=== PATIENT | female | born 1935 | race Caucasian/White ===

== ENCOUNTER 2016-09-26 12:47 | Inpatient (IN) | payer MEDICARE ==
--- NOTE | 2016-09-26 14:05 | ED ---
URI HPI - General Chief Complaint: Upper Respiratory Infection Stated Complaint: Cough/Dizzy Time Seen by Provider: 09/26/16 13:28 Source: patient, family, RN notes reviewed Mode of arrival: wheelchair Limitations: no limitations - History of Present Illness Initial Comments: This is a 81-year-old female who states she's had a cough for last 5 days has some dizziness and weakness decreased oral intake. She has some fevers and sweats. She states she was in [place] and return 5 days ago. She did fly by airplane. She states that she has some pain when she coughs in her left chest no nausea no vomiting no diarrhea. She was seen by yesterday placed on antibiotics but is not getting any better. She denies any rhinorrhea sore throat MD Complaint: cough - Related Data Home Medications Medication Instructions Recorded Confirmed Aspirin 325 mg PO DAILY 09/26/16 09/26/16 Azithromycin [Zithromax Z-pack] See Taper PO DIRECTED 09/26/16 09/26/16 Fenofibrate Nanocrystallized 145 mg PO DAILY 09/26/16 09/26/16 [Tricor] Hydroxyurea 500 - 1,000 mg PO DAILY 09/26/16 09/26/16 Lisinopril 40 mg PO DAILY 09/26/16 09/26/16 Ondansetron Odt [Zofran Odt] 4 mg PO Q8HR PRN 09/26/16 09/26/16 amLODIPine BESYLATE [Norvasc] 10 mg PO DAILY 09/26/16 09/26/16 glipiZIDE/METFORMIN HCL 1 tab PO DAILY 09/26/16 09/26/16 [Glipizide-Metformin 2.5-500 mg] Allergies Allergy/AdvReac Type Severity Reaction Status Date / Time meperidine [From Demerol] Allergy Nausea & Verified 09/26/16 13:58 Vomiting Review of Systems ROS Statement: Those systems with pertinent positive or pertinent negative responses have been documented in the HPI. ROS Other: All systems not noted in ROS Statement are negative. Past Medical History Past Medical History: Diabetes Mellitus, Hyperlipidemia, Hypertension History of Any Multi-Drug Resistant Organisms: None Reported Past Surgical History: Appendectomy, Back Surgery, Orthopedic Surgery, Tonsillectomy Additional Past Surgical History / Comment(s): rt hand,amanda shoulder ,lt knee, cataracts Past Psychological History: No Psychological Hx Reported Smoking Status: Never smoker Past Alcohol Use History: None Reported Past Drug Use History: None Reported General Exam - General Exam Comments Initial Comments: This is a well-developed well-nourished awake alert oriented x 3 female Limitations: no limitations General appearance: alert, in no apparent distress Head exam: Present: atraumatic, normocephalic, normal inspection Eye exam: Present: normal appearance, PERRL, EOMI. Absent: scleral icterus, conjunctival injection, periorbital swelling ENT exam: Present: mucous membranes dry Neck exam: Present: normal inspection. Absent: tenderness, meningismus, lymphadenopathy Respiratory exam: Present: rhonchi (right lower lobe rhonchi), decreased breath sounds. Absent: respiratory distress, wheezes, rales, stridor Cardiovascular Exam: Present: regular rate, normal rhythm, normal heart sounds. Absent: systolic murmur, diastolic murmur, rubs, gallop, clicks GI/Abdominal exam: Present: soft, normal bowel sounds. Absent: distended, tenderness, guarding, rebound, rigid Extremities exam: Present: normal inspection, full ROM, normal capillary refill. Absent: tenderness, pedal edema, joint swelling, calf tenderness Back exam: Present: normal inspection Neurological exam: Present: alert, oriented X3, CN II-XII intact Psychiatric exam: Present: normal affect, normal mood Skin exam: Present: warm, dry, intact, normal color. Absent: rash Course Vital Signs 09/26/16 09/26/16 09/26/16 12:52 13:40 15:14 Temperature 99.6 F Pulse Rate 87 68 Respiratory 22 20 18 Rate Blood Pressure 99/61 99/55 O2 Sat by Pulse 91 L 93 L Oximetry 09/26/16 09/26/16 09/26/16 15:39 16:17 16:30 Temperature Pulse Rate 72 71 73 Respiratory 20 Rate Blood Pressure 112/56 O2 Sat by Pulse 96 Oximetry 09/26/16 18:05 Temperature 97.4 F L Pulse Rate 70 Respiratory 20 Rate Blood Pressure 107/56 O2 Sat by Pulse 97 Oximetry Medical Decision Making - Medical Decision Making I did have multiple discussion with the patient and family regarding the findings. Patient did have some hypoxemia. She does have influenza type B. X- ray shows no evidence of pneumonia though on clinical exam she does have right lower lobe rhonchi. Patient originally wanted to be discharged after preparation was underway that she did change her mind after being offered admission and does choose be admitted. I did discuss case Dr. Smith. Patient be admitted with infectious disease consultation. The patient did get some improvement with aeration after the nebulizer treatment. - Lab Data Result diagrams: 09/26/16 14:25 09/26/16 14:25 Lab Results 09/26/16 09/26/16 09/26/16 Range/Units 14:25 14:25 14:25 WBC 2.7 L (3.8-10.6) k/uL RBC 4.12 (3.80-5.40) m/uL Hgb 15.2 (11.4-16.0) gm/dL Hct 45.0 (34.0-46.0) % MCV 109.1 H (80.0-100.0) fL MCH 36.8 H (25.0-35.0) pg MCHC 33.7 (31.0-37.0) g/dL RDW 14.9 (11.5-15.5) % Plt Count 182 (150-450) k/uL Neutrophils % 60 % Lymphocytes % 25 % Monocytes % 11 % Eosinophils % 1 % Basophils % 1 % Neutrophils # 1.6 (1.3-7.7) k/uL Lymphocytes # 0.7 L (1.0-4.8) k/uL Monocytes # 0.3 (0-1.0) k/uL Eosinophils # 0.0 (0-0.7) k/uL Basophils # 0.0 (0-0.2) k/uL Manual Slide Review Performed Poikilocytosis (manual Present Macrocytosis Marked D-Dimer (<0.60) mg/L FEU Sodium 138 (137-145) mmol/L Potassium 4.2 (3.5-5.1) mmol/L Chloride 104 (98-107) mmol/L Carbon Dioxide 25 (22-30) mmol/L Anion Gap 9 mmol/L BUN 21 H (7-17) mg/dL Creatinine 0.95 (0.52-1.04) mg/dL Est GFR (MDRD) Af Amer >60 (>60 ml/min/1.73 sqM) Est GFR (MDRD) Non-Af 56 (>60 ml/min/1.73 sqM) Glucose 88 (74-99) mg/dL Calcium 8.9 (8.4-10.2) mg/dL Magnesium 1.8 (1.6-2.3) mg/dL Total Bilirubin 0.5 (0.2-1.3) mg/dL AST 81 H (14-36) U/L ALT 51 (9-52) U/L Alkaline Phosphatase 66 (38-126) U/L Total Creatine Kinase 85 (30-135) U/L CK-MB (CK-2) 0.4 (0.0-2.4) ng/mL CK-MB (CK-2) Rel Index 0.5 Total Protein 6.5 (6.3-8.2) g/dL Albumin 3.9 (3.5-5.0) g/dL Influenza Type A RNA (Not Detectd) Influenza Type B (PCR) (Not Detectd) 09/26/16 09/26/16 Range/Units 14:25 14:25 WBC (3.8-10.6) k/uL RBC (3.80-5.40) m/uL Hgb (11.4-16.0) gm/dL Hct (34.0-46.0) % MCV (80.0-100.0) fL MCH (25.0-35.0) pg MCHC (31.0-37.0) g/dL RDW (11.5-15.5) % Plt Count (150-450) k/uL Neutrophils % % Lymphocytes % % Monocytes % % Eosinophils % % Basophils % % Neutrophils # (1.3-7.7) k/uL Lymphocytes # (1.0-4.8) k/uL Monocytes # (0-1.0) k/uL Eosinophils # (0-0.7) k/uL Basophils # (0-0.2) k/uL Manual Slide Review Poikilocytosis (manual Macrocytosis D-Dimer 0.31 (<0.60) mg/L FEU Sodium (137-145) mmol/L Potassium (3.5-5.1) mmol/L Chloride (98-107) mmol/L Carbon Dioxide (22-30) mmol/L Anion Gap mmol/L BUN (7-17) mg/dL Creatinine (0.52-1.04) mg/dL Est GFR (MDRD) Af Amer (>60 ml/min/1.73 sqM) Est GFR (MDRD) Non-Af (>60 ml/min/1.73 sqM) Glucose (74-99) mg/dL Calcium (8.4-10.2) mg/dL Magnesium (1.6-2.3) mg/dL Total Bilirubin (0.2-1.3) mg/dL AST (14-36) U/L ALT (9-52) U/L Alkaline Phosphatase (38-126) U/L Total Creatine Kinase (30-135) U/L CK-MB (CK-2) (0.0-2.4) ng/mL CK-MB (CK-2) Rel Index Total Protein (6.3-8.2) g/dL Albumin (3.5-5.0) g/dL Influenza Type A RNA Not Detected (Not Detectd) Influenza Type B (PCR) Detected H (Not Detectd) - EKG Data -: EKG Interpreted by Me EKG shows normal: sinus rhythm (EKG shows a sinus rhythm of 76. Interval 180 QRS duration 92 QT/QTC of 392/441 nonspecific inferior changes) - Radiology Data Radiology results: report reviewed (I did review the imaging and reports no acute findings.), image reviewed Disposition Clinical Impression: Influenza, Bronchospasm, Pneumonitis Disposition: ADMITTED IP TO THIS HOSP Condition: Stable Referrals: Adriel Franco MD [Primary Care Provider] - 1-2 days
--- NOTE | 2016-09-26 14:22 | XR ---
EXAMINATION TYPE: XR chest 2V DATE OF EXAM: 09/26/2016 2:18 PM COMPARISON: NONE TECHNIQUE: PA and lateral views submitted. HISTORY: Cough FINDINGS: The lungs are clear and there is no pneumothorax, pleural effusion, or focal pneumonia. Diffuse ost eopenia and arthropathy shoulders. Biapical pleural thickening. Postsurgical change right shoulder. H yperinflation suggests COPD. Degenerative change of the spine. Ectasia of the aorta with atherosclero tic changes. IMPRESSION: 1. No acute process.
[2016-09-26 14:39] LABS: Basophils % (A) 1 %; CH 36.4; CHCM 33.6; Eosinophils % (A) 1 %; HDW 2.58; HGB 15.2 gm/dL (11.4-16.0); Luc # (Auto) 0.08; Luc % (Auto) 3; Lymphocytes # (A) 0.7 k/uL (1.0-4.8); Lymphocytes % (A) 25 %; MCH 36.8 pg (25.0-35.0); MCHC 33.7 g/dL (31.0-37.0); MCV 109.1 fL (80.0-100.0); Macrocytosis Marked; Mean Platelet Volume 7.1; Monocytes # (A) 0.3 k/uL (0-1.0); Monocytes % (A) 11 %; Neutrophils # (A) 1.6 k/uL (1.3-7.7); Neutrophils % (A) 60 %; RBC 4.12 m/uL (3.80-5.40); RDW 14.9 % (11.5-15.5); WBC 2.7 k/uL (3.8-10.6); WBC (Perox) 2.74
[2016-09-26 14:54] LABS: Manual Review Performed
[2016-09-26 15:14] LABS: ALT 51 U/L (9-52); AST 81 U/L (14-36); Alkaline Phosphatase 66 U/L (38-126); Anion Gap 9 mmol/L; Blood Urea Nitrogen 21 mg/dL (7-17); Calcium 8.9 mg/dL (8.4-10.2); Carbon Dioxide 25 mmol/L (22-30); Chloride 104 mmol/L (98-107); Glucose 88 mg/dL (74-99); Magnesium 1.8 mg/dL (1.6-2.3); Non-African American GFR(MDRD) 56 (>60 ml/min/1.73 sqM); Potassium 4.2 mmol/L (3.5-5.1); Sodium 138 mmol/L (137-145); Total Bilirubin 0.5 mg/dL (0.2-1.3); Total Protein 6.5 g/dL (6.3-8.2)
[2016-09-26 15:20] LABS: Creatine Kinase MB 0.4 ng/mL (0.0-2.4)
[2016-09-26] MEDS ORDERED: IPRATROPIUM-ALBUTEROL 3 ML NEB INHALATION STA (16:00)
[2016-09-26] MEDS ORDERED: PNEUMONIA PROTOCOL UTILIZED 1 EACH MISC PO PRN (18:24)
[2016-09-26] MEDS ORDERED: ONDANSETRON ODT 4 MG TAB PO PRN (18:26)
[2016-09-26] MEDS: SODIUM CHLORIDE 0.9% 1,000 ML IV SCH (19:30)
[2016-09-26 19:49] LABS: Hemoglobin A1C 6.2 % (4.2-6.1)
[2016-09-26] MEDS ORDERED: IPRATROPIUM-ALBUTEROL 3 ML NEB INHALATION SCH (20:00)
[2016-09-26 20:05] LABS: Glucose,Whole Blood 73 mg/dL (75-99)
[2016-09-26] MEDS: INSULIN LISPRO (humaLOG) 300 UNIT/3 ML VIAL SQ SCH (20:21)
[2016-09-26] MEDS ORDERED: IPRATROPIUM-ALBUTEROL 3 ML NEB INHALATION PRN (23:33)
[2016-09-27] MEDS: SODIUM CHLORIDE 0.9% 1,000 ML IV SCH ×2 (04:30→14:09)
[2016-09-27 07:18] LABS: Glucose,Whole Blood 85 mg/dL (75-99)
[2016-09-27] MEDS ORDERED: metFORMIN 500 MG TAB PO SCH ×2 (07:30)
[2016-09-27] MEDS: INSULIN LISPRO (humaLOG) 300 UNIT/3 ML VIAL SQ SCH ×4 (07:32→21:54)
[2016-09-27] MEDS: OSELTAMIVIR 75 MG CAP PO SCH ×2 (08:00→21:54)
[2016-09-27] MEDS: ASPIRIN 325 MG TAB PO SCH (08:00)
[2016-09-27] MEDS: amLODIPine 5 MG TAB PO SCH ×3 (08:00→21:54)
[2016-09-27] MEDS: LISINOPRIL 20 MG TAB PO SCH ×3 (08:01→21:54)
[2016-09-27] MEDS: HYDROXYUREA 500 MG CAP PO SCH (08:01)
[2016-09-27] MEDS: AZITHROMYCIN 500 MG TAB PO SCH (08:02)
[2016-09-27] MEDS: FENOFIBRATE 160 MG TAB PO SCH (08:02)
--- NOTE | 2016-09-27 08:18 | XR ---
EXAMINATION TYPE: XR chest 2V DATE OF EXAM: 09/27/2016 8:14 AM COMPARISON: 09/26/2016 TECHNIQUE: PA and lateral views submitted. HISTORY: Pneumonia FINDINGS: The lungs are clear and there is no pneumothorax, pleural effusion, or focal pneumonia. Hyperinflat ion suggests COPD and there is arthropathy of the shoulder with previous surgery in the right. Biapic al pleural thickening noted. Mild thickening of the minor fissure. Hypertrophic and degenerative nails ge of the spine. IMPRESSION: 1. No acute process. Correlate for COPD.
[2016-09-27] MEDS: IPRATROPIUM-ALBUTEROL 3 ML NEB INHALATION SCH ×4 (08:51→19:56)
[2016-09-27] MEDS ORDERED: METFORMIN HCL PO SCH (09:00)
[2016-09-27] MEDS ORDERED: amLODIPine 10 MG TAB PO SCH (09:00)
[2016-09-27] MEDS ORDERED: AZITHROMYCIN 250 MG TAB PO SCH (09:00)
[2016-09-27] MEDS ORDERED: LISINOPRIL 20 MG TAB PO SCH (09:00)
[2016-09-27] MEDS ORDERED: GLIPIZIDE PO SCH (09:00)
[2016-09-27 11:51] LABS: Glucose,Whole Blood 72 mg/dL (75-99)
[2016-09-27 15:00] VITALS: BMI 21.4
--- NOTE | 2016-09-27 15:10 | P.HPIM ---
History of Present Illness H&P Date: 09/27/16 Chief Complaint: Weakness fever cough This is a pleasant 81-year-old lady patient of Dr. Franco, she has underlying history of hypertension diabetes mellitus type 2 hyperlipidemia admitted to the hospital secondary to fever and chills with cough difficulty of breathing. She was well flying to [place] 2 weeks prior to admission and flu eye pain, while in [place] for about 1 week patient had some fever and chills this started one week prior to admission, flew back to [place] this past Friday feeling ill with fever chills myalgia and cough. She was seen in the ER and was noted to have inluenza B and clinical pneumonitis with bronchospasm. She has leukopenia. dehydration She was started on tamiflu and iv antibiotics for acute respiratory decompensation Review of Systems Constitutional: Reports as per HPI, Reports fatigue, Reports fever, Reports malaise, Reports weakness, Denies anorexia, Denies chills, Denies chronic headaches, Denies chronic pain, Denies daytime sleepiness, Denies lethargy, Denies night sweats, Denies poor appetite, Denies sweats, Denies weight gain, Denies weight loss Ears, nose, mouth and throat: Reports as per HPI, Denies ant. neck pain, Denies bleeding gums, Denies dental pain, Denies dysphagia, Denies epistaxis, Denies headache, Denies hoarseness, Denies mouth pain, Denies nasal congestion, Denies nasal discharge, Denies neck fullness/pressure, Denies neck lump, Denies nose pain, Denies odynophagia, Denies post-nasal drip, Denies sinus pain, Denies sinus pressure, Denies swelling in mouth, Denies swelling in throat, Denies sore throat, Denies vertigo, Denies voice changes Cardiovascular: Reports as per HPI, Reports shortness of breath, Denies chest pain, Denies claudication, Denies decreased exercise tolerance, Denies dyspnea on exertion, Denies edema, Denies high blood pressure, Denies irregular heart beat, Denies leg edema, Denies lightheadedness, Denies orthopnea, Denies palpitations, Denies paroxysmal nocturnal dyspnea, Denies phlebitis, Denies rapid heart beat, Denies syncope Respiratory: Reports as per HPI, Reports cough, Reports dyspnea, Denies congestion, Denies cough with sputum, Denies excessive sputum, Denies hemoptysis , Denies home oxygen, Denies pain, Denies pain on inspiration, Denies pleurisy, Denies respiratory infections, Denies sleep apnea, Denies snoring, Denies wheezing Gastrointestinal: Reports as per HPI, Denies abdominal pain, Denies belching, Denies bloating, Denies BRBPR, Denies change in bowel habits, Denies coffee ground emesis, Denies constipation, Denies diarrhea, Denies dyspepsia, Denies early satiety, Denies excessive gas, Denies heartburn, Denies hematemesis, Denies hematochezia, Denies indigestion, Denies jaundice, Denies lactose intolerance, Denies loss of appetite, Denies melena, Denies nausea, Denies vomiting Genitourinary: Reports as per HPI, Denies abnormal vaginal bleeding, Denies decreased libido, Denies difficulty conceiving, Denies difficulty voiding, Denies dysmenorrhea, Denies dyspareunia, Denies dysuria, Denies flank pain, Denies genital sores, Denies hematuria, Denies hot flashes, Denies incomplete emptying, Denies kidney stones, Denies menorrhagia, Denies mixed incontinence, Denies nocturia, Denies pelvic pain, Denies post void dribbling, Denies , Denies prolapse symptoms, Denies stress incontinence, Denies urge incontinence , Denies urgency, Denies urinary frequency, Denies vaginal discharge, Denies vaginal dryness, Denies vaginal itching, Denies vaginal odor Menstruation: Reports as per HPI, Denies amenorrhea, Denies amenorrhea on BC, Denies currently menstrual, Denies cycle < 21 days, Denies cycle > 35 days, Denies cycle variable, Denies menses 1-7 days, Denies menses 8 or > days, Denies menses variable, Denies period heavy, Denies period light, Denies period normal, Denies period spotting, Denies post hysterectomy, Denies postmenopausal , Denies premenarcheal Musculoskeletal: Reports as per HPI, Denies arm numbness/tingling, Denies atrophy, Denies fractures, Denies frequent falls, Denies gait dysfunction, Denies hot joints, Denies leg numbness/tingling, Denies limitation of motion, Denies loss of height, Denies low back pain, Denies morning stiffness, Denies muscle cramps, Denies muscle weakness, Denies myalgias, Denies neck pain, Denies neck stiffness, Denies prior amputations, Denies redness of joints, Denies shooting arm pain, Denies shooting leg pain Integumentary: Reports as per HPI, Denies acne, Denies boils, Denies brittle nails, Denies change in hair/nails, Denies color changes, Denies darkening of skin, Denies depigmentation, Denies dryness, Denies foot/leg ulcers, Denies growths, Denies hirsutism, Denies lesions, Denies onychomycosis, Denies pruritus , Denies rash, Denies sores, Denies striae, Denies unusual bruising, Denies wounds Neurological: Reports as per HPI, Denies aphasia, Denies ataxia, Denies balance difficulties, Denies burning pain, Denies change in mentation, Denies change in smell/taste, Denies change in speech, Denies confusion, Denies convulsions, Denies double vision, Denies gait dysfunction, Denies head injury, Denies headaches, Denies hearing difficulties, Denies lack of coordination, Denies loss of vision, Denies memory loss, Denies migraines, Denies motor disturbance, Denies numbness, Denies paralysis, Denies paresthesias, Denies seizures, Denies sensory deficit, Denies spasticity, Denies syncope, Denies tic, Denies tingling , Denies transient paralysis, Denies tremors, Denies vertigo, Denies weakness, Denies visual changes Psychiatric: Reports as per HPI, Denies anhedonia, Denies anxiety, Denies anxiety attacks, Denies change in appetite, Denies change in libido, Denies change in sleep habits, Denies confusion, Denies depression, Denies difficulty concentrating, Denies disorientation, Denies hallucinations, Denies hopelessness , Denies hypersomnia, Denies insomnia, Denies irritability, Denies memory loss, Denies mood swings, Denies paranoia, Denies sadness/tearfulness, Denies sleep disturbances, Denies suicidal ideation Endocrine: Reports as per HPI, Denies cold intolerance, Denies deepening of the voice, Denies excessive sweating, Denies excessive thirst, Denies fatigue, Denies flushing, Denies heat intolerance, Denies high blood sugars, Denies increase in ring/shoe/hat size, Denies low blood sugars, Denies nocturia, Denies palpitations, Denies polydipsia, Denies polyphagia, Denies polyuria, Denies proptosis, Denies recent glucocorticoid use, Denies thyroid mass, Denies weight change Hematologic/Lymphatic: Reports as per HPI, Denies easy bleeding, Denies easy bruising, Denies lymphadenopathy, Denies lymphedema, Denies thrombophilia Allergic/Immunologic: Reports as per HPI, Denies allergic rhinitis, Denies anaphylaxis, Denies angioedema, Denies gluten intolerance, Denies persistent infections, Denies seasonal allergies, Denies urticaria, Denies wheezing Past Medical History Past Medical History: Diabetes Mellitus, Hyperlipidemia, Hypertension History of Any Multi-Drug Resistant Organisms: None Reported Past Surgical History: Appendectomy, Back Surgery, Orthopedic Surgery, Tonsillectomy Additional Past Surgical History / Comment(s): rt hand,amanda shoulder ,lt knee, cataracts Past Anesthesia/Blood Transfusion Reactions: No Reported Reaction Past Psychological History: No Psychological Hx Reported Smoking Status: Never smoker Past Alcohol Use History: None Reported Past Drug Use History: None Reported Medications and Allergies Home Medications Medication Instructions Recorded Confirmed Type Aspirin 325 mg PO DAILY 09/26/16 09/26/16 History Azithromycin [Zithromax Z-pack] See Taper PO DIRECTED 09/26/16 09/26/16 History Fenofibrate Nanocrystallized 145 mg PO DAILY 09/26/16 09/26/16 History [Tricor] Hydroxyurea 500 mg PO DAILY 09/26/16 09/26/16 History Lisinopril 20 mg PO BID 09/26/16 09/26/16 History Ondansetron Odt [Zofran Odt] 4 mg PO Q8HR PRN 09/26/16 09/26/16 History amLODIPine BESYLATE [Norvasc] 5 mg PO BID 09/26/16 09/26/16 History glipiZIDE/METFORMIN HCL 0.5 tab PO BID-W/MEALS 09/26/16 09/26/16 History [Glipizide-Metformin 2.5-500 mg] Allergies Allergy/AdvReac Type Severity Reaction Status Date / Time meperidine [From Demerol] Allergy Nausea & Verified 09/26/16 13:58 Vomiting Physical Exam Vitals: Vital Signs Temp Pulse Pulse Resp BP BP Pulse Ox 09/27/16 08:43 98.7 F 09/27/16 08:00 19 09/27/16 07:00 100.0 F H 81 19 109/61 92 L 09/26/16 23:00 98.6 F 70 16 122/64 95 09/26/16 19:44 97.4 F L 71 16 110/63 94 L 09/26/16 19:17 98.0 F 72 20 111/63 98 09/26/16 18:05 97.4 F L 70 20 107/56 97 09/26/16 18:00 78 23 116/68 98 09/26/16 17:00 78 20 115/68 98 09/26/16 16:30 73 09/26/16 16:17 71 09/26/16 15:39 72 20 112/56 96 09/26/16 15:14 68 18 99/55 93 L Intake and Output 09/26/16 09/27/16 09/27/16 22:59 06:59 14:59 Other: Voiding Method Toilet # Voids 1 1 - Constitutional General appearance: cooperative, no acute distress - EENT Eyes: anicteric sclerae, EOMI ENT: hearing grossly normal, NA/AT, normal oropharynx - Neck Neck: normal ROM - Respiratory Respiratory: bilateral: CTA, negative: diminished, dullness, rales, rhonchi, wheezing - Cardiovascular Rhythm: regular Heart sounds: normal: S1, S2 Abnormal Heart Sounds: no systolic murmur, no diastolic murmur, no rub, no S3 Gallop, no S4 Gallop, no click, no other - Gastrointestinal General gastrointestinal: normal bowel sounds, soft - Integumentary Integumentary: normal, normal turgor - Neurologic Neurologic: CNII-XII intact - Musculoskeletal Musculoskeletal: gait normal, generalized weakness, strength equal bilaterally - Psychiatric Psychiatric: A&O x's 3, appropriate affect, intact judgment & insight Results CBC & Chem 7: 09/26/16 14:25 09/26/16 14:25 Labs: Abnormal Lab Results - Last 24 Hours (Table) 09/26/16 09/26/16 09/26/16 Range/Units 14:25 14:25 14:25 WBC 2.7 L (3.8-10.6) k/uL MCV 109.1 H (80.0-100.0) fL MCH 36.8 H (25.0-35.0) pg Lymphocytes # 0.7 L (1.0-4.8) k/uL BUN 21 H (7-17) mg/dL POC Glucose (mg/dL) (75-99) mg/dL Hemoglobin A1c (4.2-6.1) % AST 81 H (14-36) U/L Influenza Type B (PCR) Detected H (Not Detectd) 09/26/16 09/26/16 09/27/16 Range/Units 14:25 20:02 11:49 WBC (3.8-10.6) k/uL MCV (80.0-100.0) fL MCH (25.0-35.0) pg Lymphocytes # (1.0-4.8) k/uL BUN (7-17) mg/dL POC Glucose (mg/dL) 73 L 72 L (75-99) mg/dL Hemoglobin A1c 6.2 H (4.2-6.1) % AST (14-36) U/L Influenza Type B (PCR) (Not Detectd) Laboratory Results WBC 2.7 k/uL (3.8-10.6) L 09/26/16 14:25 RBC 4.12 m/uL (3.80-5.40) 09/26/16 14:25 Hgb 15.2 gm/dL (11.4-16.0) 09/26/16 14:25 Hct 45.0 % (34.0-46.0) 09/26/16 14:25 MCV 109.1 fL (80.0-100.0) H 09/26/16 14:25 MCH 36.8 pg (25.0-35.0) H 09/26/16 14:25 MCHC 33.7 g/dL (31.0-37.0) 09/26/16 14:25 RDW 14.9 % (11.5-15.5) 09/26/16 14:25 Plt Count 182 k/uL (150-450) 09/26/16 14:25 Neutrophils % 60 % 09/26/16 14:25 Lymphocytes % 25 % 09/26/16 14:25 Monocytes % 11 % 09/26/16 14:25 Eosinophils % 1 % 09/26/16 14:25 Basophils % 1 % 09/26/16 14:25 Neutrophils # 1.6 k/uL (1.3-7.7) 09/26/16 14:25 Lymphocytes # 0.7 k/uL (1.0-4.8) L 09/26/16 14:25 Monocytes # 0.3 k/uL (0-1.0) 09/26/16 14:25 Eosinophils # 0.0 k/uL (0-0.7) 09/26/16 14:25 Basophils # 0.0 k/uL (0-0.2) 09/26/16 14:25 Manual Slide Review Performed 09/26/16 14:25 Poikilocytosis (manual Present 09/26/16 14:25 Macrocytosis Marked 09/26/16 14:25 D-Dimer 0.31 mg/L FEU (<0.60) 09/26/16 14:25 Sodium 138 mmol/L (137-145) 09/26/16 14:25 Potassium 4.2 mmol/L (3.5-5.1) 09/26/16 14:25 Chloride 104 mmol/L (98-107) 09/26/16 14:25 Carbon Dioxide 25 mmol/L (22-30) 09/26/16 14:25 Anion Gap 9 mmol/L 09/26/16 14:25 BUN 21 mg/dL (7-17) H 09/26/16 14:25 Creatinine 0.95 mg/dL (0.52-1.04) 09/26/16 14:25 Est GFR (MDRD) Af Amer >60 (>60 ml/min/1.73 sqM) 09/26/16 14:25 Est GFR (MDRD) Non-Af 56 (>60 ml/min/1.73 sqM) 09/26/16 14:25 Glucose 88 mg/dL (74-99) 09/26/16 14:25 POC Glucose (mg/dL) 72 mg/dL (75-99) L 09/27/16 11:49 POC Glu [employer] Yue Giordano 09/27/16 11:[address] Glu mg/dL 131 mg/dL 09/26/16 14:25 Hemoglobin A1c 6.2 % (4.2-6.1) H 09/26/16 14:25 Calcium 8.9 mg/dL (8.4-10.2) 09/26/16 14:25 Magnesium 1.8 mg/dL (1.6-2.3) 09/26/16 14:25 Total Bilirubin 0.5 mg/dL (0.2-1.3) 09/26/16 14:25 AST 81 U/L (14-36) H 09/26/16 14:25 ALT 51 U/L (9-52) 09/26/16 14:25 Alkaline Phosphatase 66 U/L (38-126) 09/26/16 14:25 Total Creatine Kinase 85 U/L (30-135) 09/26/16 14:25 CK-MB (CK-2) 0.4 ng/mL (0.0-2.4) 09/26/16 14:25 CK-MB (CK-2) Rel Index 0.5 09/26/16 14:25 Total Protein 6.5 g/dL (6.3-8.2) 09/26/16 14:25 Albumin 3.9 g/dL (3.5-5.0) 09/26/16 14:25 Influenza Type A RNA Not Detected (Not Detectd) 09/26/16 14:25 Influenza Type B (PCR) Detected (Not Detectd) H 09/26/16 14:25 Thrombosis Risk Factor Assmnt - DVT/VTE Prophylaxis DVT/VTE Prophylaxis: Mechanical Prophylaxis ordered, Low risk, early ambulation encouraged - Choose All That Apply Any of the Below Risk Factors Present?: No Other Risk Factors: Yes Each Risk Factor Represents 2 Points: Malignancy Other congenital or acquired thrombophilia - If yes, enter type in comment: No Thrombosis Risk Factor Assessment Total Risk Factor Score: 2 Thrombosis Risk Factor Assessment Level: Low Risk Assessment and Plan Plan: 1. Influenza B with SIRS, leukopenia, mild hypotension and dehydration, presenting to the ER with clinical deterioration, patient requires IV antibiotics Rocephin, and Zithromax and oral Tamiflu 75 mg twice a day. Sputum culture would be performed if able, consult with infectious disease, 2. Leukopenia and megalocytosis, possible myelodysplasia, patient is on Hydrea for thrombocytosis this would be monitored, last WBC count was 4.2, MCV is elevated as is in 2015, 2. Diabetes mellitus type 2 with hemoglobin A1c of 6.2, monitor for Accu-Cheks before meals and at bedtime, patient is on Glucotrol 1.25 mg twice a day which would be decreased to once a day 4. Elevated liver function tests mainly AST, possibly fatty liver related, 5. Acute dehydration secondary to diminished oral intake, patient currently is sitting IV fluids, appetite should be improved after influenza treatment continues to clinically make the patient better 6 Hyperlipidemia on TriCor 145 7. Hypertension on lisinopril 20 mg twice a day which would be given using parameters continue amlodipine 5 mg twice a day DVT prophylaxis GI prophylaxis with Pepcid and DOYLE hose and ambulation Expected length of stay 2 nights
[2016-09-27 17:46] LABS: Glucose,Whole Blood 78 mg/dL (75-99)
[2016-09-27 17:46] LABS: Glucose,Whole Blood 64 mg/dL (75-99)
--- NOTE | 2016-09-27 18:52 | CONS ---
DATE OF CONSULTATION: 09/27/2016 REASON FOR CONSULTATION: Acute influenza B and possible pneumonia. HISTORY OF PRESENT ILLNESS: The patient is an 81-year-old female presenting to the ER at [facility] with chief complaints of increasing shortness of breath feeling weak and tired and a dry hacking cough. The patient's symptoms started the patient was visiting. The patient said that she was feeling weak and tired with a dry, irritating cough which was dry in nature. Patient denies significant URI symptoms or sore throat. The patient did have some fever and chills but did not record her temperature. The patient flew back to [place] and ended up coming to the hospital for further evaluation. The patient was evaluated by the ER physician. She did have an x-ray that was negative for pneumonia; however, the patient did have influenza PCR coming back positive for influenza B with concern about possible right lower lobe pneumonia on clinical examination. She was started on Rocephin, azithromycin and Tamiflu. She was admitted to the hospital. I was asked to see the patient for further recommendation regarding antibiotic therapy. Patient did mention that she did have overall improvement as compared to yesterday. Still denies having any nausea. No vomiting. No abdominal pain. No diarrhea. No burning or frequency of urine. REVIEW OF SYSTEMS: CONSTITUTIONAL: Positive for weakness and fever. EYES: No complaint. ENT: No complaint. RESPIRATORY: As per HPI. CARDIOVASCULAR: No complaint. GENITOURINARY: No complaint. GASTROINTESTINAL: No complaint. MUSCULOSKELETAL: No complaint. INTEGUMENTARY: No complaint. PSYCHOLOGIC: No complaint. ENDOCRINE: No complaint. NEUROLOGIC: No complaint. PAST MEDICAL HISTORY: 1. Hypertension. 2. Hyperlipidemia. 3. Diabetes mellitus. PAST SURGICAL HISTORY: 1. Appendectomy. 2. Tonsillectomy. 3. Right hand surgery. 4. Bilateral shoulder surgery. 5. Left knee replacement. SOCIAL HISTORY: No history of smoking, drinking or drug use. FAMILY HISTORY: No pertinent findings were noticed. ALLERGIES: MEPERIDINE. Medications currently include: 1. DuoNeb. 2. Norvasc. 3. Aspirin. 4. Zithromax. 5. Rocephin. 6. Lofibra. 7. Glucotrol. 8. Hydrea. 9. Humalog. 10. Zestril. 11. Zofran. 12. Tamiflu. On examination, her blood pressure is 117/55 with a pulse of 69, temperature 98 with a T-max of 100. She is 94% on 2 L nasal cannula. General description is an elderly female lying in bed in no distress. No tachypnea or accessory muscle of respiration use. HEENT examination shows no pallor, no scleral icterus. Oral mucous membrane is dry. NECK: Trachea is central. No thyromegaly. LUNGS: Unlabored breathing with decreased breath sounds at the base. No wheeze. HEART: S1, S2. Regular rate and rhythm. ABDOMEN: Soft. No tenderness. EXTREMITIES: No edema of the feet. LABS: Hemoglobin 15.1, white count 2.7 with a BUN of 21, creatinine 0.95. Electrolytes have been normal. Liver enzymes are normal. Influenza B was positive on the PCR. Chest x-ray x2 has been negative for any acute infiltrate. DIAGNOSTIC IMPRESSION AND PLAN: Patient admitted to hospital with a low-grade fever and chills and dry hacking cough, positive for influenza B, more likely representing an acute influenza B. Clinical suspicion for a post influenza or concurrent bacterial pneumonia remains on the low side. No significant findings on clinical examination. Chest x-ray x2 has been negative. She did have slight leukopenia. She does not look toxic. PLAN: 1. Will recommend putting the patient on Tamiflu 75 mg twice a day for a total of 5 days. 2. Will try to obtain sputum for Gram stain and culture and sensitivity if the cough becomes productive. 3. May continue short course of antibiotic in the form of Rocephin and azithromycin; however, if the culture remains negative and the patient shows overall improvement, this can be discontinued. Thank you for this consultation. Will follow this patient along with you. MCKINLEY
[2016-09-27 20:38] LABS: Glucose,Whole Blood 81 mg/dL (75-99)
[2016-09-28] MEDS: SODIUM CHLORIDE 0.9% 1,000 ML IV SCH ×3 (00:16→21:21)
[2016-09-28 00:29] VITALS: RESP 16
[2016-09-28] MEDS: INSULIN LISPRO (humaLOG) 300 UNIT/3 ML VIAL SQ SCH ×4 (07:52→21:07)
[2016-09-28 08:04] LABS: Glucose,Whole Blood 88 mg/dL (75-99)
[2016-09-28] MEDS: IPRATROPIUM-ALBUTEROL 3 ML NEB INHALATION SCH ×4 (08:21→19:17)
[2016-09-28] MEDS: amLODIPine 5 MG TAB PO SCH ×2 (08:23→21:02)
[2016-09-28] MEDS: ASPIRIN 325 MG TAB PO SCH (08:23)
[2016-09-28] MEDS: OSELTAMIVIR 75 MG CAP PO SCH ×2 (08:24→21:02)
[2016-09-28] MEDS: HYDROXYUREA 500 MG CAP PO SCH (08:24)
[2016-09-28] MEDS: LISINOPRIL 20 MG TAB PO SCH ×2 (08:24→21:02)
[2016-09-28] MEDS: AZITHROMYCIN 500 MG TAB PO SCH (08:24)
[2016-09-28] MEDS: FENOFIBRATE 160 MG TAB PO SCH (08:24)
[2016-09-28 12:43] LABS: Glucose,Whole Blood 83 mg/dL (75-99)
[2016-09-28 17:01] LABS: Glucose,Whole Blood 101 mg/dL (75-99)
[2016-09-28] MEDS ORDERED: PROCHLORPERAZINE 5 MG TAB PO PRN (17:42)
--- NOTE | 2016-09-28 18:35 | P.PN ---
Subjective Principal diagnosis: pneumonia, influenza b Patient seen and examined this afternoon. Patient states much thin drainage and secretions. Dry, hacking cough. Unable to produce sputum. Patient is nauseated. States she has not been able to eat much. Has had a little bit of juice today. Patient states she had one bowl of corn flakes in the morning which is the most that she is held down in a few days she has been so nauseated and had a lack of appetite with her infection. Patient states she lives alone but her son is able to provide some help when needed. No complaints of pain. Has been ambulating in room. Objective - Vital Signs Vital signs: Vital Signs Temp 98.4 F 09/28/16 15:00 Pulse 72 09/28/16 16:06 Resp 16 09/28/16 15:00 BP 114/65 09/28/16 15:00 Pulse Ox 96 09/28/16 15:00 Intake & Output 09/27/16 09/28/16 09/28/16 18:59 06:59 18:59 Intake Total 600 Balance 600 Weight 56.699 kg Intake: Oral 600 Other: Voiding Method Toilet # Voids 2 2 3 # Bowel Movements 0 1 - Exam General: Patient awake alert and oriented x 3. No acute distress. HEENT: Sclerae are clear. Pupils equal, round and reactive to light bilaterally. Chest: Heart regular in rate and rhythm positive S1 and S2. No S3. No S4. No clicks, rubs or murmurs. Lungs: Clear to auscultation at the apices. Diminished at bases. Respirations even and nonlabored. Severe dry nonproductive cough. Abdomen/GI: Bowel sounds present in all 4 quadrants. Bowel sounds normoactive. No abdominal tenderness. No mass. No hepatomegaly or splenomegaly. No bruits. Musculoskeletal/ Extremities: No tenderness on muscular exam. No ecchymosis. Vascular: Radial pulses equal. 2/4. Ankles without any significant edema. Skin: No rash. Neurologic: Awake, alert and oriented times 3. No lateralizing deficits noted on gross inspection. - Labs CBC & Chem 7: 09/29/16 08:07 09/29/16 08:07 Labs: Abnormal Lab Results - Last 24 Hours (Table) 09/28/16 Range/Units 16:57 POC Glucose (mg/dL) 101 H (75-99) mg/dL Microbiology - Last 24 Hours (Table) 09/26/16 14:25 Blood Culture - Preliminary Blood No Growth after 24 hours Assessment and Plan Plan: 1. Influenza B with SIRS, leukopenia, mild hypotension and dehydration, presenting to the ER with clinical deterioration, patient requires IV antibiotics Rocephin, and Zithromax and oral Tamiflu 75 mg twice a day. Sputum culture was unable to perform secondary to dry cough. 2. Leukopenia and megalocytosis, possible myelodysplasia, patient is on Hydrea for thrombocytosis this would be monitored, last WBC count was 4.2, MCV is elevated as is in 2014. AM CBC 2. Diabetes mellitus type 2 with hemoglobin A1c of 6.2, monitor for Accu-Cheks before meals and at bedtime, patient is on Glucotrol 1.25 mg once a day 4. Elevated liver function tests mainly AST, possibly fatty liver related. Repeat in am. 5. Acute dehydration secondary to diminished oral intake, appetite still poor. Encouraged patient to eat. Blood glucose low as not eating. Metformin was held prior. Antiemetic ordered prn. Mucinex to thin secretions to see if this helps with nausea. 6 Hyperlipidemia on TriCor 145 7. Hypertension on lisinopril 20 mg twice a day which would be given using parameters continue amlodipine 5 mg twice a day 8. Blood cultures reviewed and are negative. 9. Check am BMP. DVT prophylaxis GI prophylaxis with Pepcid and DOYLE hose and ambulation
--- NOTE | 2016-09-28 18:43 | PN ---
DATE OF SERVICE: 09/28/2016 REASON FOR FOLLOWUP: Acute influenza B. INTERVAL HISTORY: The patient is afebrile. She is feeling better, breathing comfortably. Cough has decreased in intensity, Denies chest pain or abdominal pain. No nausea, vomiting or any diarrhea. On examination, blood pressure 114/65 with a pulse of 72, temperature 98.4. She is 96% on 2L. General description is an elderly female, lying in bed in no distress. RESPIRATORY SYSTEM: Unlabored breathing. Clear to auscultation anteriorly. HEART: S1 and S2. Regular rate and rhythm. ABDOMEN: Soft. No tenderness. LABS: No new labs have been obtained today. Blood cultures have been negative. DIAGNOSTIC IMPRESSION AND PLAN: Patient admitted to hospital with a dry barking cough, some shortness of breath, and diagnosed with acute influenza B. Clinically, suspicion remains low for a secondary bacterial pneumonia. Blood culture has been negative. Chest x-ray negative. The patient will finish therapy with oral Tamiflu to finish a 5-day course of therapy. Antibiotic will be discontinued. MTDD
[2016-09-28 20:43] LABS: Glucose,Whole Blood 151 mg/dL (75-99)
[2016-09-28] MEDS: guaiFENesin 600 MG TABLET.ER PO SCH (21:02)
[2016-09-29] MEDS: SODIUM CHLORIDE 0.9% 1,000 ML IV SCH (06:14)
[2016-09-29 07:09] LABS: Glucose,Whole Blood 95 mg/dL (75-99)
[2016-09-29 07:19] VITALS: BP 127/68; PULSE 72; TEMP 98.4
[2016-09-29] MEDS: INSULIN LISPRO (humaLOG) 300 UNIT/3 ML VIAL SQ SCH ×2 (07:33→13:04)
[2016-09-29] MEDS: ASPIRIN 325 MG TAB PO SCH (08:06)
[2016-09-29] MEDS: amLODIPine 5 MG TAB PO SCH (08:06)
[2016-09-29] MEDS: guaiFENesin 600 MG TABLET.ER PO SCH (08:06)
[2016-09-29] MEDS: AZITHROMYCIN 500 MG TAB PO SCH (08:06)
[2016-09-29] MEDS: HYDROXYUREA 500 MG CAP PO SCH (08:07)
[2016-09-29] MEDS: OSELTAMIVIR 75 MG CAP PO SCH (08:07)
[2016-09-29] MEDS: LISINOPRIL 20 MG TAB PO SCH (08:07)
[2016-09-29] MEDS: FENOFIBRATE 160 MG TAB PO SCH (08:07)
[2016-09-29 08:25] LABS: CH 36.2; CHCM 33.2; HCT 41.9 % (34.0-46.0); HDW 2.75; HGB 13.5 gm/dL (11.4-16.0); MCH 35.4 pg (25.0-35.0); MCHC 32.3 g/dL (31.0-37.0); MCV 109.7 fL (80.0-100.0); Macrocytosis Marked; RBC 3.82 m/uL (3.80-5.40); RDW 14.9 % (11.5-15.5); WBC 2.9 k/uL (3.8-10.6); WBC (Perox) 3.04
[2016-09-29 08:41] LABS: AST 76 U/L (14-36); Anion Gap 7 mmol/L; Blood Urea Nitrogen 7 mg/dL (7-17); Calcium 8.6 mg/dL (8.4-10.2); Carbon Dioxide 25 mmol/L (22-30); Chloride 111 mmol/L (98-107); Glucose 100 mg/dL (74-99); Non-African American GFR(MDRD) >60 (>60 ml/min/1.73 sqM); Potassium 3.7 mmol/L (3.5-5.1); Sodium 143 mmol/L (137-145)
[2016-09-29] MEDS: IPRATROPIUM-ALBUTEROL 3 ML NEB INHALATION SCH ×2 (08:49→11:54)
[2016-09-29 09:04] LABS: Add Differential Manual Differential
[2016-09-29 09:09] LABS: Manual Review Performed; Nucleated Red Blood Cells 0 /100 WBC (0-0); Total Cells Counted 100
[2016-09-29 12:29] LABS: Glucose,Whole Blood 96 mg/dL (75-99)
--- NOTE | 2016-09-29 12:58 | P.DS ---
Providers Date of admission: 09/26/16 18:24 Expected date of discharge: 09/29/16 Attending physician: Josie Smith Consults: 09/26/16 18:24 Consult Physician Routine Consulting Provider: Venu Lowery Consult Reason/Comments: Pneumonitis and influenza Do you want consulting provider notified?: Yes Primary care physician: Adriel Franco Patient indicates she sees Dr. Hess in the office. - Discharge Diagnosis(es) (1) SIRS due to infectious process with organ dysfunction with bronchitis and pneumonitis secondary to influenza b; patient with relative hypotension in normally hypertensive patient and clinical signs of dehydration. Patient's CBC changes unreliable as diagnostic criteria with underlying possible myelodysplasia and hydrea to suppres thrombocytosis Status: Acute (2) Influenzal bronchitis from Influenza B Status: Acute (3) Pneumonitis secondary to influenza b Status: Acute (4) Influenza, bronchopneumonia Status: Acute (5) Influenza B Status: Acute (6) Myelodysplasia (myelodysplastic syndrome) possible, being worked up and treated by hematology on an outpatient basis Status: Chronic (7) Hypertension, essential Status: Chronic (8) Diabetes mellitus type 2 in nonobese Status: Acute (9) Elevated AST (SGOT) Status: Acute (10) Hyperlipemia Status: Chronic Hospital Course: This 81-year-old female presented to [facility] with a chief complaint of fever and chills for one week while traveling to [place]. Patient in the days prior to admission also had developed myalgia,cough and dyspnea. Patient was seen and evaluated in the emergency department and found to be positive for influenza B. Chest x-ray did not reveal any pneumonia time of admission. There were chronic changes suggestive of COPD with hyperinflation and pleural thickening at the bilateral apices. The patient was admitted to the hospital and treated with Tamiflu for influenza B as well as coverage for possible superimposed bacterial process while cultures were obtained. Blood cultures were negative. Patient was seen by infectious disease. Plan of care continued and patient gradually improved. Infectious disease recommended that bacterial coverage could be discontinued as bacterial process not as highly suspected. Patient continued to improve. Oxygen was able to be weaned. Patient did have an extremely poor appetite and diabetic medications were held. Patient's appetite is slightly improved on the day of discharge and she indicates she will be able to drink supplements in the form of Glucerna or similar until her appetite fully returns. She does have the support of her son to help her at home but is fully ambulatory here. Patient seen and examined on the day of discharge her heart is regular in rate and rhythm positive S1 positive S2 no S3. Her mucous membranes are moist. Her lungs are clear to auscultation bilaterally but patient still does have a very harsh cough that is nonproductive at this time. Her abdomen is soft and nontender. Her extremities are without edema and warm with positive peripheral pulses. She is awake alert oriented and appropriate. Patient is felt stable for discharge with outpatient follow-up with Dr. Hess. Plan of care is reviewed with the patient and the nurse. Pertinent Studies: Chest x-ray was performed which reveals no acute pneumonia but bilateral apical pleural thickening and some flattening of the diaphragms suggestive of possible underlying COPD. Procedures: No procedures were performed. Patient Condition at Discharge: Good Plan - Discharge Summary New Discharge Prescriptions: Oseltamivir [Tamiflu] 75 mg PO Q12HR #5 cap Discharge Medication List Aspirin 325 mg PO DAILY 09/26/16 [History] Fenofibrate Nanocrystallized [Tricor] 145 mg PO DAILY 09/26/16 [History] Hydroxyurea 500 mg PO DAILY 09/26/16 [History] Lisinopril 20 mg PO BID 09/26/16 [History] amLODIPine BESYLATE [Norvasc] 5 mg PO BID 09/26/16 [History] glipiZIDE/METFORMIN HCL [Glipizide-Metformin 2.5-500 mg] 0.5 tab PO BID-W/MEALS 09/26/16 [History] Oseltamivir [Tamiflu] 75 mg PO Q12HR #5 cap 09/29/16 [Rx] guaiFENesin [Mucinex] 600 mg PO Q12HR #0 tab 09/29/16 [Rx] Follow up Appointment(s)/Referral(s): Kj Hess MD [STAFF PHYSICIAN] - 1 Week (office closed. please call to schedule an appointment) Ambulatory/Diagnostic Orders: AST [LAB.AMB] Location: Determined By Patient Patient Instructions/Handouts: Type 2 Diabetes in Adults (DC), Influenza (DC) Activity/Diet/Wound Care/Special Instructions: follow up with Dr. Ramirez as previously scheduled regarding possible myelodysplasia, thrombocytosis Glucerna or equivalent shakes until appetite fully improved. Do not take glipizide and metformin tablet until eating well. Monitor blood sugar when restarting that medicine. Discharge Disposition: HOME SELF-CARE
== END 2016-09-29 13:48 | disposition home or self-care (01) | DRG 195 ==
LOC: EC 12:47 → 4MS4W 18:24
PROVIDERS: ADMIT Family Medicine; ATTEND Family Medicine
DX: J10.08 Influenza due to other identified influenza virus with other specified pneumonia (principal); E86.0 Dehydration; E11.9 Type 2 diabetes mellitus without complications; I10 Essential (primary) hypertension; D46.9 Myelodysplastic syndrome, unspecified; E78.5 Hyperlipidemia, unspecified; J15.9 Unspecified bacterial pneumonia; Z98.42 Cataract extraction status, left eye; Z98.41 Cataract extraction status, right eye; Z96.652 Presence of left artificial knee joint; Z90.49 Acquired absence of other specified parts of digestive tract; Z79.84 Long term (current) use of oral hypoglycemic drugs; Z79.82 Long term (current) use of aspirin; Z79.899 Other long term (current) drug therapy
CPT/HCPCS: 36415; 71020; 80048; 80053; 82550; 82553; 83036; 83735; 84450; 85025; 85379; 87040; 87502; 93005; 94640; 99284

== ENCOUNTER → 2017-08-29 | Outpatient (CLI) | payer MEDICARE ==
--- NOTE | 2017-08-29 15:23 | BD ---
EXAMINATION TYPE: MG DEXA axial skeleton. DATE OF EXAM: 08/29/2017 COMPARISON: 11.23.2008 DEXA bone scan report. CLINICAL HISTORY: 82 YR OLD FEMALE....ICD-10 CODE: M81.0 OSTEOPOROSIS Height: 62.7 Weight: 119 FRAX RISK QUESTIONS: Alcohol (3 or more units per day): NO Family History (Parent hip fracture): UNKNOWN Glucocorticoids (More than 3mos): NO (Ex: prednisone, prednisolone, methylprednisolone, dexamethasone, and hydrocortisone). History of Fracture in Adulthood: NO Secondary Osteoporosis: YES 1. Type 1 Diabetes: NO....TYPE 2 2. Hyperthyroidism: YES 3. Menopause before 45: YES AT 38 4. Malnutrition: NO 5. Chronic liver disease: NO Rheumatoid Arthritis: NO Current Tobacco Use: NO RISK FACTORS HISTORY OF: Surgery to Spine TO SACRUM ONLY.....FOR NERVES Family History of Osteoporosis: NONE KNOWN Active: YES Diet low in dairy products/other sources of calcium: NO Postmenopausal woman: HYST. AT AGE 38 TOOK PREMARIN FOR SHORT WHILE....EARLY ON Poor Health: ELDERLY Hyperparathyroidism: YES, BEING TREATED FOR IT. Adrenal Insufficiency: NO MEDICATIONS: Prednisone or other steroids: CORTIZONE SHOT IN KNEE JOINT...A WEEK AGO Additional Medications: MULTIVITAMIN, BP MED, ORAL DIABETIC MEDS, STATIN FOR CHOLESTEROL Additional History: DIABETIC, HYPERTENSION, EXAM MEASUREMENTS: Bone mineral densitometry was performed using the [employer] System. Bone mineral density as measured about the Lumbar spine is: ----- L1-L4(G/cm2): 1.067 T Score Values are as follows: ----- L1: -2.3 ----- L2: -0.6 ----- L3: -0.4 ----- L4: -0.8 ----- L1-L4: -0.9 Bone mineral density has: Increased 2.4% since study of: 11.23.2008 Bone mineral density about the R hip (g/cm2): 0.736 Bone mineral density about the L hip (g/cm2): 0.710 T Score values are as follows: -----R Neck: -1.9 -----L Neck: -2.4 -----R Total: -2.2 -----L Total: -2.4 Bone mineral density has: Decreased -14.7% since study of: 11.23.2008 FRAX%S: THERE IS A 16.5% CHANCE OF A MAJOR OSTEOPOROTIC FX AND A 6.1% FOR HIP FX....PROBABILITY OF FX IN 10 YRS TIME IMPRESSION: Osteopenia (T Score between -2.5 and -1) is noted in both hips. Bone density is decreased or diminish ed from prior report at this level. There is slightly increased risk of fracture and the patient may be considered for treatment. Re-Screen 2-5 years. NOTE: T-SCORE=SD OF THE YOUNG ADULT MEAN.
== END | disposition home or self-care (01) ==
LOC: RADBDWWP 12:18
PROVIDERS: ATTEND Internal Medicine Geriatric Medicine
DX: M85.88 Other specified disorders of bone density and structure, other site (principal)
CPT/HCPCS: 77080

== ENCOUNTER → 2018-05-04 | Outpatient (CLI) | payer MEDICARE ==
--- NOTE | 2018-05-04 09:05 | US ---
EXAMINATION TYPE: US abdomen complete DATE OF EXAM: 05/04/2018 COMPARISON: 10/02/2010 CLINICAL HISTORY: R16.9 Splenomegaly. EXAM MEASUREMENTS: Liver Length: 14.5 cm Gallbladder Wall: 0.2 cm CBD: 0.6 cm Spleen: 10.2 cm Right Kidney: 11.1 x 4.0 x 3.9 cm Left Kidney: 11.3 x 4.2 x 4.0 cm Pancreas: Obscured by bowel gas, visualized portions Liver: Coarse, heterogeneous Gallbladder: wnl Evidence for sonographic Goodson's sign: No CBD: wnl for age Spleen: Granulomas visualized Right Kidney: No hydronephrosis. Loss of corticomedullary differentiation. Cystic area upper pole me asuring 1.5 x 1.1 x 1.1 cm. Probable renal sinus cysts visualized Left Kidney: No hydronephrosis. Loss of corticomedullary differentiation. Stone visualized measuring 0.7 cm Upper IVC: wnl as visualized Abd Aorta: Atherosclerotic changes visualized without sonographic evidence for AAA IMPRESSION: 1. No evidence of splenomegaly. Benign splenic granulomas appreciated. 2. Findings suggestive of medical renal disease with right upper pole simple appearing benign renal c yst and probable renal sinus cysts. 3. Atherosclerosis of the abdominal aorta. 4. Nonobstructing 7 mm left renal calculus. 5. Coarsened hepatic echotexture that may relate to underlying hepatic steatosis. Correlate with live r function tests.
== END ==
LOC: RADUSWWP 07:58
PROVIDERS: ATTEND Internal Medicine Geriatric Medicine
DX: N20.0 Calculus of kidney (principal); I70.0 Atherosclerosis of aorta
CPT/HCPCS: 76700

== ENCOUNTER → 2018-12-31 | Day surgery (SDC) | payer MEDICARE ==
[2018-12-25 09:07] VITALS: BMI 20.5
[~2018-12-31] MED LIST: DEXAMETHASONE SOD PHOS (MDV) 100 MG/10 ML VIAL IVP ONE; LACTATED RINGERS 1,000 ML IV ONE; LACTATED RINGERS 1,000 ML IV SCH; LIDOCAINE 1% 20 ML VIAL (10MG/ML) FOR IV START INTRADERMA ONE; LIDOCAINE 1% 20 ML VIAL (10MG/ML) FOR IV START INTRADERMA PRN; MIDAZOLAM (PF) 2 MG/2 ML VIAL IVP ONE; ONDANSETRON 4 MG/2 ML VIAL IVP ONE; PHENYLEPHRINE-0.9% NACL SYG 1 MG/10 ML SYRINGE ONE; PROPOFOL 10 MG/ML 20 ML VIAL IV ONE; ROPIVACAINE 5 MG/ML 30 ML VIAL ONE; SUCCINYLCHOLINE CHLORIDE 100 MG/5 ML SYR IV ONE; fentaNYL (PF) 50 MCG/ML 2 ML AMP IV PRN; fentaNYL (PF) 50 MCG/ML 2 ML AMP ONE
[2018-12-31 06:45] LABS: Glucose,Whole Blood 120 mg/dL (75-99)
[2018-12-31 06:49] VITALS: TEMP 97.5
--- NOTE | 2018-12-31 08:22 | P.ANPRN ---
Procedure Note - Anesthesia - Nerve Block Performed Right Popliteal Single Time Out Performed: Yes Date of Procedure: 12/31/18 Procedure Start Time: 07:05 Location of Patient Procedure: PreOp Indication: Acute Post-Operative Pain, Requested by Surgeon Specifically requested for management of pain by DrKelli: Alexei Cancino Sedation Type: Sedate with meaningful contact maintained Preparation: Sterile Prep Position: Left Lateral Needle Types: Pajunk Needle Gauge: Other (see comment) (22) Ultrasound used to visualize needle placement: Yes Ultrasound used to observe medication spread: Yes Injectate: 0.5% Ropivacaine (see comment for volume) (20 cc) Blood Aspirated: No Pain Paresthesia on Injection Noted: No Resistance on Injection: Normal Image Stored and Saved: Yes Events: Uneventful and Well Tolerated
--- NOTE | 2018-12-31 10:22 | P.OP ---
Date of Procedure: 12/31/18 Preoperative Diagnosis: 1. Severe right hallux valgus 2. 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 Osteopenia Postoperative Diagnosis: Same Procedure(s) Performed: 1. Correction of right hallux valgus deformity with triplanar 1st tarsometarsal arthrodesis 2. Correction of right hallux valgus deformity with modified Ochoa procedure 3. Correction of right rigid 2nd hammertoe deformity with PIP resection arthroplasty, MTP capsulotomy and flexor tenotomy 4. Application of short leg splint right leg Anesthesia: JESSICA regional Surgeon: Alexei Cancino Public Relations Counselor #1: Vladimir Houser Estimated Blood Loss (ml): 10 IV fluids (ml): 1,200 Pathology: none sent Condition: stable Disposition: PACU Indications for Procedure: The patient is an 83 year old female that presented to my office with a severe right bunion deformity and a rigid second hammertoe. She had failed a long course of nonsurgical treatment and requested surgery. I initially recommended continued nonsurgical treatment with the patient was adamant that she wanted to go forward with surgery. We discussed her age and potentially poor bone quality, but the patient stated that despite being 83 she was very active and in excellent health. Due to the fact that she had failed nonsurgical treatment and was realistic about her healing capacity I think it was reasonable to go forward with surgery. My recommendation was to correct her hypermobile hallux valgus with a modified Lapidus procedure. She also had a rigid second hammertoe. My recommendation was to correct a rigid second hammertoe with an MTP capsulotomy, extensor tendon lengthening, PIP resection arthroplasty, and flexor to extensor tendon transfer. We discussed the potential risks and complications of surgery including but not limited to risk of anesthesia, superficial infection, deep infection, delayed wound healing, superficial wound necrosis, damage to local blood vessels or nerves, nonunion of the fusion site, malunion of the fusion site, over correction, under correction, recurrence of her hallux valgus deformity, DVT, PE, other medical complications, and possibly loss of life or limb. The patient voiced understanding of these potential complications and provided her verbal and written consent to go forward with surgery. Description of Procedure: The patient's verified and prepped holding and the correct right leg was marked with my initials. I reviewed the consent form with the patient and all of her questions were answered. The patient was then brought back to the operating room by anesthesia after receiving a popliteal and saphenous nerve block. The patient was positioned on the OR table where general anesthetic and preoperative antibiotics were given. A tourniquet was applied the proximal aspect of the right leg. All bony prominences well-padded. The right leg was then prepped and draped in the standard sterile fashion. Prior to starting surgery timeout was performed identifying the correct patient, operative extremity, and procedu re. The patient's leg was then elevated, exsanguinated with an Esmarch bandage, and the tourniquet was inflated to 250 mmHg. I began by outlining a longitudinal incision starting at the proximal pole of the medial cuneiform and ending at the mid shaft of the first metatarsal just medial to the EHL tendon. Skin incision was made with a scalpel and dissection was carried down carefully through the subcu in his tissue with tenotomy scissors. The EHL tendon sheath was identified and the tendon was retracted laterally. The first tarsometatarsal joint was then exposed. Attention was then turned distally to the first webspace. A 1 cm incision was made at the level of the MTP joint. Dissection was carried down to the lateral capsule which was sharply released. The sesamoid suspensory ligaments were also released. At this point I was able to manually reduce the intermetatarsal angle with my thumb. Attention was then turned back proximally. A stab wound was made at the lateral base of the first metatarsal and the 2.5 mm fulcrum was placed. The cutting guide was positioned over the joint and a stab incision was made just distal to the cut guide over the lateral shaft of the second metatarsal. The intermetatarsal reduction clamp and positioner were then used to gently reduce the intermetatarsal angle. Fluoroscopy was used to verify reduction of the intermetatarsal angle and the sesamoids. A K wire was placed through the positioner to hold the correction. The joint Gladys was then placed laterally in the joint followed by the low angle cut guide. The cut guide was pinned into place and the joint seeker was removed. Fluoroscopic images were taken verifying that the cuts were correct at the base of the first metatarsal and medial cuneiform. There appeared to be medial gapping of the tarsometatarsal joint. The cutting guide was pinned into place and a microsagittal saw was used to remove bone from the first metatarsal base and medial cuneiform. The joint cut guide was then removed and a compression/distractor device was placed over the pins in the cuneiform and metatarsal. The joint was gently distracted and the cut surfaces of bone were removed. The joint was thoroughly irrigated and there did not appear to be any debris within the joint. A 2.0 mm drill bit was used to thoroughly perforate the subchondral bone to facilitate fusion. The compression device was then gently tightened nicely opposing the bony surfaces. I placed a K wire from the dorsolateral aspect of the metatarsal base into the medial cuneiform and a partially threaded 3.0 mm cannulated screw was placed. I then placed the dorsal and medial plates and a 90-90 position and held them with locking screws. Fluoroscopic imaging was taken showing reduction of the intermetatarsal angle and coverage of the sesamoids. The joint appeared to be nicely compressed and the hardware was in acceptable position. Attention was then turned to the second toe. A longitudinal incision was made directly over the second toe. The PIP joint capsule was sharply opened and the distal head of the proximal pharynx was removed with a saw. The extensor tendon was sharply lengthened and the MTP capsule was released. An incision was made in the base of the PIP joint and the flexor tendons were sharply released. A double-ended 625 K wire was driven antegrade out the tip of the toe, the PIP joint was reduced, and the K wire was driven into the proximal phalanx and across the MTP joint. Clinically there still was a small prominence over the dorsomedial aspect of the first MTP joints with a longitudinal incision was made over the medial aspect of the MTP joint. The capsule was opened in a Mark was used to gently debride the first metatarsal head. A small amount of the capsule was removed and the capsule was then imbricated with 0 Vicryl further correcting the hallux valgus. All wounds were then thoroughly irrigated and closed in layers. A sterile dressing followed by a bulky Royal splint was placed. The patient was awoken from her anesthetic, transferred to a renterprise, and brought to recovery top procedure well.
--- NOTE | 2018-12-31 10:53 | XR ---
EXAMINATION TYPE: XR foot limited RT DATE OF EXAM: 12/31/2018 COMPARISON: NONE HISTORY: RIGHT FOOT LAPIPLASTY TECHNIQUE: One intraoperative view submitted FINDINGS: Single view was obtained intraoperatively as part of a right foot lapiplasty. IMPRESSION: Intraoperative image
--- NOTE | 2018-12-31 11:01 | FL ---
EXAMINATION TYPE: FL guidance operating room DATE OF EXAM: 12/31/2018 HISTORY: Flouroscopy time 1 minute and 22 seconds of fluoroscopy provided. IMPRESSION: 1. Fluoroscopy time.
[2018-12-31 11:06] LABS: Glucose,Whole Blood 159 mg/dL (75-99)
[2018-12-31 11:32] VITALS: BP 109/65; PULSE 93; RESP 16
== END | disposition home or self-care (01) ==
LOC: OR 05:57
PROVIDERS: ATTEND Orthopaedic Surgery
DX: M20.11 Hallux valgus (acquired), right foot (principal); M20.41 Other hammer toe(s) (acquired), right foot; M21.611 Bunion of right foot; M85.80 Other specified disorders of bone density and structure, unspecified site; I10 Essential (primary) hypertension; E11.9 Type 2 diabetes mellitus without complications; E78.5 Hyperlipidemia, unspecified; E78.00 Pure hypercholesterolemia, unspecified; E07.9 Disorder of thyroid, unspecified; D47.3 Essential (hemorrhagic) thrombocythemia; D47.1 Chronic myeloproliferative disease; C44.91 Basal cell carcinoma of skin, unspecified; M19.90 Unspecified osteoarthritis, unspecified site; Z79.84 Long term (current) use of oral hypoglycemic drugs; Z79.82 Long term (current) use of aspirin; Z79.899 Other long term (current) drug therapy; Z88.5 Allergy status to narcotic agent; Z98.49 Cataract extraction status, unspecified eye; Z90.710 Acquired absence of both cervix and uterus; Z98.890 Other specified postprocedural states; Z90.89 Acquired absence of other organs; Z82.49 Family history of ischemic heart disease and other diseases of the circulatory system; Z78.0 Asymptomatic menopausal state
CPT/HCPCS: 28297; 28285; 64450; 73620; C1713; J0690; J2405; J3010; J1100; J2795; J2370; J0330; J2704; J2250

== ENCOUNTER → 2020-06-30 | Outpatient (CLI) | payer MEDICARE ==
--- NOTE | 2020-06-30 10:02 | US ---
EXAMINATION TYPE: US kidneys/renal and bladder DATE OF EXAM: 06/30/2020 COMPARISON: US 05/04/18 CLINICAL HISTORY: N39.0 UTI. custodial UTI EXAM MEASUREMENTS: Right Kidney: 12.1 x 5.3 x 5.2 cm Left Kidney: 11.3 x 5.6 x 4.5 cm Post Void Residual Volume: 0 mL Right Kidney: No hydronephrosis. Cyst upper/lateral pole = 1.2 x 1.2 x 1.1 cm. Decreased renal priti x. Left Kidney: No hydronephrosis or masses seen. Decreased renal cortex. 2 stones seen. Upper pole = 1. 2 cm. Lower pole = 1.3 cm . Posterior shadowing. Bladder: internal echos noted Bilateral Jets seen: Yes Normal Post Void Residual: Yes IMPRESSION: 1. Small cortical renal cyst. 2. Left renal calcification without hydronephrosis.
== END | disposition home or self-care (01) ==
LOC: RADUSWWP 09:18
PROVIDERS: ATTEND Internal Medicine Geriatric Medicine
DX: N28.1 Cyst of kidney, acquired (principal); N39.0 Urinary tract infection, site not specified
CPT/HCPCS: 76770

== ENCOUNTER → 2020-07-12 | Outpatient (CLI) | payer MEDICARE ==
--- NOTE | 2020-07-12 08:42 | CT ---
EXAMINATION TYPE: CT abdomen pelvis wo con DATE OF EXAM: 07/12/2020 HISTORY: Renal Calculus CT DLP: 536 mGycm. Automated Exposure Control for Dose Reduction was Utilized. TECHNIQUE: CT scan of the abdomen and pelvis is performed without oral or IV contrast. Comparison: Renal ultrasound June 30, 2020 FINDINGS: Within the limitations of a non-contrast study, the following observations are made. LUNG BASES: Posterior scarring in the lingula. Basilar peripheral reticular nodular opacities with ad ditional focal slightly thickened scarring medial left lung base. Findings are nonspecific. I favor c hronic parenchymal changes over possible atypical infection. LIVER/GB: Liver isodense to slightly hypodense relative to the spleen consistent with mild diffuse fa tty infiltration. PANCREAS: No significant abnormality is seen. SPLEEN: No significant abnormality is seen. ADRENALS: No significant abnormality is seen. KIDNEYS: Confirmation of cortical thinning right kidney. There are central small suspected benign thi n-walled cysts lower pole of the right kidney. No right-sided renal calculi or hydronephrosis. There is exophytic 1.0 cm thin-walled cyst posteriorly upper and midpole right kidney axial image 57. There is confirmation of 1.4 cm calculus upper pole collecting system left kidney coronal image 62 an d 1.1 cm calculus lower pole collecting system left kidney coronal image 52. Small central parapelvic cysts in left kidney. No hydronephrosis. Cortical thinning. No intraluminal calculi in the bladder. BOWEL: Diverticulosis in the sigmoid colon. No CT evidence for acute diverticulitis. No suspicious sm all or large bowel dilatation. Prominent 2.8 cm diverticulum along 1st-2nd portion of duodenum rocha l image 31. GENITAL ORGANS: Uterus surgically absent. LYMPH NODES: No greater than 1cm abdominal or pelvic lymph nodes are appreciated. OSSEOUS STRUCTURES: Osseous structures are demineralized but dextroconvex scoliosis centered at L2-L3 level. Moderate to severe disc space narrowing greatest left L2-L3 level. Moderate disc space narrow ing L4-L5 level. Facet arthropathy lower lumbar levels. OTHER: Mild/moderate calcified plaque of the aorta extends into branch vessels. IMPRESSION: Confirmation of 2 large left-sided calculi within the collecting system as suspected on r ecent ultrasound. No hydronephrosis or obstructing ureteral calculi currently.
== END | disposition home or self-care (01) ==
LOC: RADCTMAIN 07:38
PROVIDERS: ATTEND Urology
DX: N20.0 Calculus of kidney (principal); Z88.5 Allergy status to narcotic agent
CPT/HCPCS: 74176

== ENCOUNTER → 2020-07-24 | Outpatient (CLI) | payer MEDICARE ==
[2020-07-24 13:13] LABS: Basophils # (A) 0.1 k/uL (0-0.2); Basophils % (A) 1 %; Eosinophils # (A) 0.1 k/uL (0-0.7); Eosinophils % (A) 2 %; HCT 53.2 % (34.0-46.0); HGB 17.8 gm/dL (11.4-16.0); Lymphocytes # (A) 0.9 k/uL (1.0-4.8); Lymphocytes % (A) 16 %; MCH 38.9 pg (25.0-35.0); MCHC 33.5 g/dL (31.0-37.0); MCV 116.3 fL (80.0-100.0); Macrocytosis Marked; Mean Platelet Volume 7.6; Monocytes # (A) 0.4 k/uL (0-1.0); Monocytes % (A) 7 %; Neutrophils # (A) 4.3 k/uL (1.3-7.7); Platelet Count 229 k/uL (150-450); RBC 4.58 m/uL (3.80-5.40); RDW 14.1 % (11.5-15.5)
[2020-07-24 13:22] LABS: ALT 26 U/L (4-34); AST 37 U/L (14-36); African American GFR (CKD) >90 (>60 ml/min/1.73 sqM); Albumin 4.4 g/dL (3.5-5.0); Alkaline Phosphatase 75 U/L (38-126); Anion Gap 8 mmol/L; Blood Urea Nitrogen 19 mg/dL (7-17); Calcium 9.9 mg/dL (8.4-10.2); Carbon Dioxide 27 mmol/L (22-30); Chloride 103 mmol/L (98-107); Glucose 136 mg/dL (74-99); Non-African American GFR(CKD) 83 (>60 ml/min/1.73 sqM); Potassium 4.6 mmol/L (3.5-5.1); Sodium 138 mmol/L (137-145); Total Bilirubin 0.7 mg/dL (0.2-1.3); Total Protein 7.1 g/dL (6.3-8.2)
== END | disposition home or self-care (01) ==
LOC: LABPAT 11:14
PROVIDERS: ATTEND Urology
DX: Z01.818 Encounter for other preprocedural examination (principal); N20.0 Calculus of kidney; R31.0 Gross hematuria; I10 Essential (primary) hypertension
CPT/HCPCS: 36415; 80053; 85025; 93005

== ENCOUNTER 2020-07-31 09:38 | Inpatient (IN) | payer MEDICARE ==
[2020-07-27 09:50] VITALS: BMI 20.5
--- NOTE | 2020-07-30 11:43 | P.GSCN ---
History of Present Illness Consult date: 07/30/20 History of present illness: 85 yo female with infected large kidney stones, left. She comes for a pcnl left to remove the infected stones. There are two large stones in the left kidney. Shew comes for pcnl lt. Review of Systems All systems: negative - Constitutional Denies fever, Denies weight loss - EENT Eyes: denies blurred vision Ears, nose, mouth and throat: Denies dysphagia - Cardiovascular Denies chest pain, Denies shortness of breath - Respiratory Denies cough, Denies 7 - Gastrointestinal Reports as per HPI - Genitourinary Genitourinary: Denies dysuria, Denies hematuria - Integumentary Denies rash, Denies unusual bruising - Neurological Denies headaches, Denies syncope - Hematologic/Lymphatic Denies easy bleeding, Denies easy bruising Past Medical History Past Medical History: Blood Disorder, Cancer, Diabetes Mellitus, Hyperlipidemia, Hypertension, Osteoarthritis (OA) Additional Past Medical History / Comment(s): primary myleofibrosis, hx skin cancer, kidney stones, UTI-on antibiotic History of Any Multi-Drug Resistant Organisms: Other MDRO Year Discovered:: 07/14/20 MDRO Source:: urine Past Surgical History: Appendectomy, Back Surgery, Bladder Surgery, Hysterectomy, Orthopedic Surgery, Tonsillectomy Additional Past Surgical History / Comment(s): amanda cataracts, rt wrist surgery- (bone taken from rt elbow and put in rt hand), 3 arthroscopy surgeries rt shoulder, bursa removed from rt leg, left knee arthroscopy, cysts remoed from back, rt foot bunionectomy Past Anesthesia/Blood Transfusion Reactions: Previous Problems w/ Anesthesia, Motion Sickness, Postoperative Nausea & Vomiting (PONV) Additional Past Anesthesia/Blood Transfusion Reaction / Comm: had trouble focusing after one surgery Smoking Status: Never smoker - Past Family History Mother Family Medical History: No Reported History Medications and Allergies Home Medications Medication Instructions Recorded Confirmed Type Aspirin 325 mg PO DAILY 09/26/16 07/27/20 History Fenofibrate Nanocrystallized 145 mg PO DAILY 09/26/16 07/27/20 History [Tricor] Hydroxyurea 500 mg PO MOTUWETH 09/26/16 07/27/20 History amLODIPine BESYLATE [Norvasc] 5 mg PO BID 09/26/16 07/27/20 History Hydroxyurea [Hydrea] 1,000 mg PO SUFRSA 12/25/18 07/27/20 History sitaGLIPtin [Januvia] 100 mg PO DAILY 12/25/18 07/27/20 History Acetaminophen Tab [Tylenol] 650 mg PO Q6HR PRN tab 01/17/20 07/27/20 Rx Levofloxacin [Levaquin] 500 mg PO DAILY 07/27/20 07/27/20 History lisinopriL [Prinivil] 20 mg PO BID 07/27/20 07/27/20 History Allergies Allergy/AdvReac Type Severity Reaction Status Date / Time meperidine [From Demerol] AdvReac Nausea & Verified 07/27/20 09:38 Vomiting Surgical - Exam - General well developed, well nourished, no distress - Eyes PERRL - ENT no hearing loss - Neck no masses - Respiratory normal expansion, normal respiratory effort - Cardiovascular Rhythm: regular - Abdomen Abdomen: soft, non tender - Neurologic normal coordination, normal sensation - Musculoskeletal normal gait, normal posture - Psychiatric oriented to time, oriented to person, oriented to place, speech is normal, memory intact Results - Imaging CT scan - abdomen: report reviewed, image reviewed CT scan - pelvis: report reviewed, image reviewed Assessment and Plan Assessment: Impression: Lt large infected kidney stones Plan: PCNL left
[~2020-07-31 09:38] MED LIST changes: +AMPICILLIN 1,000 MG in SODIUM CHLORIDE 0.9% 50 ML IVPB PRN; -DEXAMETHASONE SOD PHOS (MDV) 100 MG/10 ML VIAL IVP ONE; +DEXAMETHASONE SOD PHOSPHATE 4 MG/ML 1 ML VIAL IV ONE; +GENTAMICIN 80 MG in SODIUM CHLORIDE 0.9% 100 ML IVPB PRN; -LACTATED RINGERS 1,000 ML IV ONE; -LIDOCAINE 1% 20 ML VIAL (10MG/ML) FOR IV START INTRADERMA ONE; -LIDOCAINE 1% 20 ML VIAL (10MG/ML) FOR IV START INTRADERMA PRN; -MIDAZOLAM (PF) 2 MG/2 ML VIAL IVP ONE; +MIDAZOLAM 2 MG/2 ML VIAL IV PRN; -ONDANSETRON 4 MG/2 ML VIAL IVP ONE; -PHENYLEPHRINE-0.9% NACL SYG 1 MG/10 ML SYRINGE ONE; -PROPOFOL 10 MG/ML 20 ML VIAL IV ONE; -ROPIVACAINE 5 MG/ML 30 ML VIAL ONE; -SUCCINYLCHOLINE CHLORIDE 100 MG/5 ML SYR IV ONE; -fentaNYL (PF) 50 MCG/ML 2 ML AMP ONE
[2020-07-31 10:11] LABS: Glucose,Whole Blood 149 mg/dL (75-99)
[2020-07-31] MEDS: ONDANSETRON 4 MG/2 ML VIAL IVP ONE ×2 (10:12→14:21)
--- NOTE | 2020-07-31 10:34 | XR ---
KUB HISTORY: Calculus of kidney Frontal KUB correlated to CT scan 07/12/2020 Calcifications are present over the upper and lower pole the left kidney, pole calcification measures 14 mm, smaller calcification measures approximately 7 mm. Calcification at the lower pole the left k idney measures possibly 13 mm. There is retained fecal debris present. Spinal curvature is noted, the re is degenerative disc change. Calcifications are present in the left and right hemipelvis which may be vascular. IMPRESSION: Nephrolithiasis.
[2020-07-31 11:06] LABS: Appearance,Urine Cloudy (Clear); Bilirubin,Urine Negative (Negative); Blood,Urine Moderate (Negative); Color,Urine Yellow; Glucose,Urine (UA) Negative (Negative); Hyaline Casts,Urine 2 /lpf (0-2); Ketones,Urine Negative (Negative); Leukocyte Esterase,Urine Large (Negative); Mucus,Urine Occasional /hpf; Nitrite,Urine Negative (Negative); PH, Urine 5.5 (5.0-8.0); Protein,Urine 1+ (Negative); RBC,Urine 35 /hpf (0-5); Squamous Epithelial Cell,Urine 2 /hpf (0-4); Urobilinogen,Urine <2.0 mg/dL (<2.0); WBC,Urine >182 /hpf (0-5)
[2020-07-31] MEDS ORDERED: ROCURONIUM 10 MG/ML (5 ML VIAL) IV ONE (12:06)
[2020-07-31] MEDS ORDERED: fentaNYL (PF) 50 MCG/ML 2 ML AMP ONE (12:06)
[2020-07-31] MEDS ORDERED: NEOSTIGMINE 1 MG/ML 10 ML VIAL ONE (12:06)
[2020-07-31] MEDS ORDERED: PROPOFOL 10 MG/ML 20 ML VIAL IV ONE (12:06)
[2020-07-31] MEDS ORDERED: MIDAZOLAM 2 MG/2 ML VIAL ONE (12:06)
[2020-07-31] MEDS ORDERED: ePHEDrine SULFATE/0.9% NACL/PF 50 MG/5 ML SYRINGE IV ONE (12:06)
[2020-07-31] MEDS ORDERED: GLYCOPYRROLATE 0.2 MG/ML 2 ML VIAL ONE (12:06)
[2020-07-31] MEDS ORDERED: IOHEXOL 350 MG/ML 50 ML in EMPTY BAG 1 BAG IRRIGATION ONE (12:45)
[2020-07-31] MEDS ORDERED: LACTATED RINGERS 1,000 ML IV ONE (12:45)
[2020-07-31] MEDS ORDERED: ACETAMINOPHEN TAB 325 MG TAB PO PRN ×2 (14:14→14:15)
[2020-07-31] MEDS: HYDROmorphone 0.5 MG/0.5 ML SYRINGE IVP PRN ×3 (14:15→14:35)
[2020-07-31] MEDS ORDERED: MAG HYDROX/AL HYDROX/SIMETH 30 ML CUP PO PRN (14:15)
[2020-07-31] MEDS ORDERED: NALOXONE 0.4 MG/ML 1 ML VIAL IV PRN (14:16)
[2020-07-31] MEDS ORDERED: HYDROmorphone PCA 10 MG/50 ML BAG IV PRN (14:16)
[2020-07-31] MEDS ORDERED: KETOROLAC 15 MG/ML 1 ML VIAL IVP ONE (14:21)
--- NOTE | 2020-07-31 14:22 | P.OP ---
Date of Procedure: 07/31/20 Preoperative Diagnosis: Infected left renal stones, large Postoperative Diagnosis: Same Procedure(s) Performed: Cystoscopy, placement of ureteral occluding balloon catheter, percutaneous nephrostomy (Dr. Bacon) percutaneous nephrostolithotomy laser lithotripsy, placement of 10-Cymraes J nephrostomy Anesthesia: JESSICA Surgeon: Davide Solis Estimated Blood Loss (ml): 200 Pathology: other (Stone) Condition: stable Disposition: PACU Indications for Procedure: Patient is 85. She has recurring urinary infections. She has stones in her left kidney greater than 2 cm in diameter. She comes for a left percutaneous nephrostolithotomy to rid her of her stones and hopefully her infection Description of Procedure: Patient is brought to the operating suite. She is given a general endotracheal anesthesia on the transport gurney. She's placed in a frog position with a sterile prep and drape. 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 The bladder wall shows chronic cystitis. The left renal orifice is intubated with a 5-Cymraes occluding balloon catheter that passed up into the kidney. It is secured to a 16-Cymraes Veloz catheter The patient is placed in prone position. Dr. Bacon of radiology performed percutaneous access to the left lower pole calyx. I then dilated the tract to 30-Cymraes. Introduced the rigid sheath and the collecting system. A large 8-9 mm lower pole stone was identified and removed. I then pass the flexible scope throughout the collecting system and identify any dilated upper pole calyx with a tiny infundibulum very large upper pole stone. With the 270 laser probe and 10 W of energy the stone was broken into tiny pieces and flushed out of the upper pole calyx of. Then of the procedure there is no remaining stone in the collecting system. I remove the fragments at the UPJ with the grasping forceps. A 10-Cymraes J nephrostomy tube was placed in the renal pelvis. It secured to the skin with 2-0 silk. The wires removed. The ureteral catheter was removed. The patient's awake and returned recovery in good condition. Blood loss is at most 200 cc. She tolerated surgery well and will be placed in the hospital postoperatively.
[2020-07-31 14:47] LABS: Glucose,Whole Blood 155 mg/dL (75-99)
--- NOTE | 2020-07-31 15:05 | FL ---
EXAMINATION TYPE: FL Perc Nephrostomy New Access DATE OF EXAM: 07/31/2020 COMPARISON: CT 07/12/2020, KUB 07/31/2020 HISTORY: Left nephrolithiasis. PROCEDURE: Maximal barrier technique was utilized, hand hygiene obtained with soap and water and alcohol-based h and rub. The skin overlying the left kidney was localized using fluoroscopy and the overlying skin p repped and draped. Skin sylvia was made with a scalpel. Access was gained under fluoroscopy, following placement of a ureteral occlusion balloon by the referring clinician and instillation of air in the renal collecting system with a 21-gauge needle to the left kidney. A suitable posterior calyx was ch osen. A 0.018 inch wire was advanced. The access site was dilated , access site was upsized, safet y wire deployed and subsequently a sheath was advanced into the renal pelvis following dilation with balloon along the tract. The patient underwent nephrolithotomy by the referring clinician. The mau ent remained in stable condition without complication. The patient was discharged to observation in the care of anesthesia. 3 minutes 12 seconds fluoroscopy time, 3 intraoperative images document the procedure IMPRESSION: STATUS POST NEPHROSTOMY PLACEMENT FOR NEPHROLITHOTOMY WITH FLUOROSCOPIC GUIDANCE. THIS PROCEDURE PER FORMED BY THE UNDERSIGNED.
[2020-07-31] MEDS ORDERED: HYDROmorphone 0.5 MG/0.5 ML SYRINGE IVP PRN (16:12)
[2020-07-31] MEDS ORDERED: KETOROLAC 15 MG/ML 1 ML VIAL IVP SCH (18:00)
[2020-07-31] MEDS: KETOROLAC 15 MG/ML 1 ML VIAL IVP SCH (20:40)
[2020-07-31] MEDS: SODIUM CHLORIDE 0.45% 1,000 ML IV SCH (21:35)
[2020-07-31] MEDS: lisinopriL 20 MG TAB PO SCH (21:47)
[2020-07-31] MEDS: amLODIPine 5 MG TAB PO SCH (21:47)
[2020-08-01] MEDS: HYDROcodone/APAP 5-325MG 1 EACH TAB PO PRN ×3 (00:07→18:12)
[2020-08-01] MEDS: KETOROLAC 15 MG/ML 1 ML VIAL IVP SCH ×4 (02:22→20:09)
[2020-08-01] MEDS: ONDANSETRON 4 MG/2 ML VIAL IVP PRN ×2 (06:37→15:25)
[2020-08-01] MEDS: PANTOPRAZOLE 40 MG TABLET PO SCH (06:38)
--- NOTE | 2020-08-01 07:20 | P.PN ---
Subjective Progress Note Date: 08/01/20 The patient is in her first postoperative day from a left percutaneous nephrostolithotomy, large. She's had some upper abdominal discomfort as expected given the anatomy and the size of her stones. Her vital signs are stable. Her urine is clearing. The nephrostomy tube is draining. I will discontinue her Veloz and have her ambulate. She is not ready for discharge. I would suspect that she'll be ready tomorrow. Condition is good. Objective - Vital Signs Vital signs: Vital Signs Temp 98.4 F 08/01/20 01:52 Pulse 86 08/01/20 01:52 Resp 18 08/01/20 01:52 BP 92/54 08/01/20 01:52 Pulse Ox 91 L 08/01/20 01:52 Intake & Output 07/31/20 08/01/20 08/01/20 18:59 06:59 18:59 Intake Total 1553 1065 Output Total 800 400 Balance 753 665 Weight 53.8 kg Intake: IV 1553 Intake, IV Titration 825 Amount Sodium Chloride 0.45% 1, 825 000 ml @ 75 mls/hr IV . [id number] [facility] Rx#:[id number] Oral 240 Output: Drainage 100 left back 100 Urine 600 300 Uretheral (Veloz) 300 Estimated Blood Loss 200 Other: Voiding Method Indwelling Catheter # Voids 0 - Labs Labs: Abnormal Lab Results - Last 24 Hours (Table) 07/31/20 07/31/20 07/31/20 Range/Units 10:07 10:23 14:45 POC Glucose (mg/dL) 149 H 155 H (75-99) mg/dL Urine Appearance Cloudy H (Clear) Urine Protein 1+ H (Negative) Urine Blood Moderate H (Negative) Ur Leukocyte Esterase Large H (Negative) Urine RBC 35 H (0-5) /hpf Urine WBC >182 H (0-5) /hpf Urine Mucus Occasional H (None) /hpf Microbiology - Last 24 Hours (Table) 07/31/20 10:23 Urine Culture - Preliminary Urine,Voided
[2020-08-01 07:49] LABS: Glucose,Whole Blood 111 mg/dL (75-99)
[2020-08-01] MEDS: amLODIPine 5 MG TAB PO SCH ×2 (08:28→20:10)
[2020-08-01] MEDS: FENOFIBRATE 160 MG TAB PO SCH (08:33)
[2020-08-01] MEDS: LEVOFLOXACIN 500 MG TAB PO SCH (08:33)
[2020-08-01] MEDS: SODIUM CHLORIDE 0.45% 1,000 ML IV SCH ×2 (08:34→18:12)
[2020-08-01] MEDS: LINAGLIPTIN 5 MG TABLET PO SCH (08:34)
[2020-08-01] MEDS: lisinopriL 20 MG TAB PO SCH ×2 (08:37→20:10)
[2020-08-01 12:20] LABS: Glucose,Whole Blood 100 mg/dL (75-99)
[2020-08-01] MEDS: INSULIN ASPART (NovoLOG) 100 UNIT/ML VIAL SQ SCH ×3 (12:24→20:14)
[2020-08-01] MEDS ORDERED: SODIUM CHLORIDE 0.9% 500 ML 500 ML IV ONE (15:38)
[2020-08-01 17:14] LABS: Glucose,Whole Blood 106 mg/dL (75-99)
[2020-08-01] MEDS: METOCLOPRAMIDE 5 MG/ML 2 ML VIAL IVP PRN (18:12)
[2020-08-01 20:15] LABS: Glucose,Whole Blood 117 mg/dL (75-99)
[2020-08-02] MEDS: KETOROLAC 15 MG/ML 1 ML VIAL IVP SCH ×4 (01:40→20:02)
[2020-08-02] MEDS ORDERED: FUROSEMIDE 10 MG/ML 2 ML VIAL IV ONE (03:16)
--- NOTE | 2020-08-02 04:00 | XR ---
EXAM: XR Chest, 1 View CLINICAL HISTORY: Shortness of breath TECHNIQUE: Frontal view of the chest. COMPARISON: September 27, 2016 FINDINGS: Lungs: Unremarkable. No acute infiltration, atelectasis or mass. Pleural space: Unremarkable. No pneumothorax or pleural fluid. Heart: Unremarkable. No cardiomegaly. Mediastinum: Unremarkable. Bones/joints: No acute findings. IMPRESSION: No evidence of acute or active process in the chest.
[2020-08-02 04:21] LABS: Basophils % (A) 0 %; Eosinophils % (A) 0 %; Lymphocytes # (A) 0.3 k/uL (1.0-4.8); Lymphocytes % (A) 3 %; MCH 39.5 pg (25.0-35.0); MCV 116.2 fL (80.0-100.0); Macrocytosis Marked; Mean Platelet Volume 8.4; Monocytes # (A) 0.4 k/uL (0-1.0); Monocytes % (A) 4 %; Neutrophils # (A) 9.3 k/uL (1.3-7.7); RBC 3.44 m/uL (3.80-5.40); RDW 14.4 % (11.5-15.5); WBC 10.1 k/uL (3.8-10.6)
[2020-08-02 04:33] LABS: Calcium 7.8 mg/dL (8.4-10.2); Potassium 4.1 mmol/L (3.5-5.1)
[2020-08-02] MEDS: HYDROcodone/APAP 5-325MG 1 EACH TAB PO PRN (04:48)
[2020-08-02] MEDS: SODIUM CHLORIDE 0.45% 1,000 ML IV SCH (04:54)
[2020-08-02 05:23] LABS: C Reactive Protein 355.8 mg/L (<10.0)
[2020-08-02 06:24] LABS: HGB 13.6 gm/dL (11.4-16.0)
[2020-08-02 06:37] LABS: Glucose,Whole Blood 105 mg/dL (75-99)
[2020-08-02] MEDS: INSULIN ASPART (NovoLOG) 100 UNIT/ML VIAL SQ SCH ×4 (06:41→21:08)
[2020-08-02 06:44] LABS: Polychromasia Present
[2020-08-02 06:45] LABS: Platelet Count 99 k/uL (150-450)
[2020-08-02] MEDS: PANTOPRAZOLE 40 MG TABLET PO SCH (06:47)
[2020-08-02] MEDS: ONDANSETRON 4 MG/2 ML VIAL IVP PRN ×2 (08:30→18:03)
[2020-08-02 09:43] LABS: Ferritin 248.7 ng/mL (10.0-291.0)
[2020-08-02] MEDS: FENOFIBRATE 160 MG TAB PO SCH (09:46)
[2020-08-02] MEDS: LEVOFLOXACIN 500 MG TAB PO SCH (09:46)
[2020-08-02] MEDS: LINAGLIPTIN 5 MG TABLET PO SCH (09:47)
--- NOTE | 2020-08-02 09:55 | P.PN ---
Subjective Progress Note Date: 08/02/20 The patient is in her second day post left percutaneous nephrostolithotomy. Yesterday her urine output was low and she was given a fluid bolus. Her urine output picked up however she did not handle the fluid bolus well as she developed diminished O2 sats last night as well as restlessness. She was given 20 mg of Lasix with good resolution of the problem. I asked medicine to see the patient to rule out any other medical problems contributing to this. She feels much better today. She is voiding without difficulty. The urine in her nephrostomy tube is clearing. Her urine output is good. I will observe her another 24 hours and if she does well she can be discharged home tomorrow. Objective - Vital Signs Vital signs: Vital Signs Temp 98.3 F 08/02/20 08:25 Pulse 96 08/02/20 08:25 Resp 16 08/02/20 08:25 BP 117/64 08/02/20 08:25 Pulse Ox 93 L 08/02/20 08:25 Intake & Output 08/01/20 08/02/20 08/02/20 18:59 06:59 18:59 Intake Total 1790 Output Total 250 1500 Balance 1540 -1500 Intake: Intake, IV Titration 1250 Amount Sodium Chloride 0.45% 1, 750 000 ml @ 75 mls/hr IV . [id number] [facility] Rx#:[id number] Sodium Chloride 0.9% 500 500 ml 500 ml @ 999 mls/hr IV .Q31M ONE Rx#:[id number] Oral 540 Output: Drainage 100 600 Left Flank 100 600 Urine 150 900 Other: Voiding Method Toilet # Voids 1 - Labs CBC & Chem 7: 08/02/20 03:58 08/02/20 03:58 Labs: Abnormal Lab Results - Last 24 Hours (Table) 08/01/20 08/01/20 08/01/20 Range/Units 12:18 17:13 20:14 RBC (3.80-5.40) m/uL MCV (80.0-100.0) fL MCH (25.0-35.0) pg Plt Count (150-450) k/uL Neutrophils # (1.3-7.7) k/uL Lymphocytes # (1.0-4.8) k/uL Macrocytosis D-Dimer (<0.60) mg/L FEU Sodium (137-145) mmol/L Chloride (98-107) mmol/L Carbon Dioxide (22-30) mmol/L BUN (7-17) mg/dL Creatinine (0.52-1.04) mg/dL Glucose (74-99) mg/dL POC Glucose (mg/dL) 100 H 106 H 117 H (75-99) mg/dL Calcium (8.4-10.2) mg/dL C-Reactive Protein (<10.0) mg/L 08/02/20 08/02/20 08/02/20 Range/Units 03:58 03:58 03:58 RBC 3.44 L (3.80-5.40) m/uL MCV 116.2 H (80.0-100.0) fL MCH 39.5 H (25.0-35.0) pg Plt Count 99 L D (150-450) k/uL Neutrophils # 9.3 H (1.3-7.7) k/uL Lymphocytes # 0.3 L (1.0-4.8) k/uL Macrocytosis Marked A D-Dimer 4.34 H (<0.60) mg/L FEU Sodium 136 L (137-145) mmol/L Chloride 108 H (98-107) mmol/L Carbon Dioxide 19 L (22-30) mmol/L BUN 32 H (7-17) mg/dL Creatinine 1.07 H (0.52-1.04) mg/dL Glucose 100 H (74-99) mg/dL POC Glucose (mg/dL) (75-99) mg/dL Calcium 7.8 L (8.4-10.2) mg/dL C-Reactive Protein 355.8 H (<10.0) mg/L 08/02/20 Range/Units 06:35 RBC (3.80-5.40) m/uL MCV (80.0-100.0) fL MCH (25.0-35.0) pg Plt Count (150-450) k/uL Neutrophils # (1.3-7.7) k/uL Lymphocytes # (1.0-4.8) k/uL Macrocytosis D-Dimer (<0.60) mg/L FEU Sodium (137-145) mmol/L Chloride (98-107) mmol/L Carbon Dioxide (22-30) mmol/L BUN (7-17) mg/dL Creatinine (0.52-1.04) mg/dL Glucose (74-99) mg/dL POC Glucose (mg/dL) 105 H (75-99) mg/dL Calcium (8.4-10.2) mg/dL C-Reactive Protein (<10.0) mg/L Microbiology - Last 24 Hours (Table) 07/31/20 10:23 Urine Culture - Preliminary Urine,Voided Gram Neg Bacilli
--- NOTE | 2020-08-02 10:30 | P.CONS ---
History of Present Illness - Reason for Consult Consult date: 08/02/20 Medical management - History of Present Illness HISTORY OF PRESENT ILLNESS This is an 85-year-old female patient of Dr. Franco with past medical history of diabetes mellitus type 2, hypertension, hyperlipidemia, hypothyroidism. Patient has history of myelofibrosis under the care of Dr. Dulce roberts on Hydrea. Patient was last hospitalized in January 2020 and treated for Pseudomonas urinary tract infection with IV cefepime. Patient has been brought into the hospital under the care of Dr. Solis status post cystoscopy, placement of ureteral occluding balloon catheter, her cutaneous nephrostomy with Dr. Bacon, percutaneous nephrostolithotomy laser lithotripsy and placement of a J nephrostomy on July 31. Patient has been afebrile, heart rate in the 90s, blood pressure 107/73 and has been on the lower side. Pulse ox 94% on 3 L nasal cannula. During the night, patient had a pulse ox reading of 88% on room air. She states that she had some midsternal chest pain at that time but has resolved. She denies having any cough or shortness of breath. She states she has some bloating. No fever or chills. No diarrhea. She states her last bowel movement was prior to admission. Patient currently has no shortness of breath and is not requiring oxygen. She is on IV fluids at 75 mL per hour. She had a urine output of 300 after Lasix. She is reaching between 750 on incentive spi rometry. Chest x-ray shows no evidence of acute or active process in the chest. Repeat blood work reveals WBC 10.1, hemoglobin 13.6, platelet count 99. D-dimer 4.34. Patient encouraged to get up in a chair today and increase activity as well as increase incentive spirometry use. Also Senokot added scheduled starting today for constipation and bloating. The pressure medications will be held for now, monitor blood pressure and reevaluate at the time of discharge. REVIEW OF SYSTEMS Constitutional: Denies fever, no chills, no night sweats. No weight change. No weakness, fatigue or lethargy. No daytime sleepiness. EENT: No headache. No blurred vision or double vision, no loss of vision. No loss of Hearing, no ringing in the ears, no dizziness. No nasal drainage or congestion. No epistaxis. No sore throat. Lungs: No shortness of breath, occasional cough, no sputum production. No wheezing. Cardiovascular: No chest pain, no lower extremity edema. No palpitations. No paroxysmal nocturnal dyspnea. No orthopnea. No lightheadedness or dizziness. No syncopal episodes. Abdominal: No abdominal pain. Reports bloating. No nausea, vomiting. No diarrhea. Reports constipation. No bloody or tarry stools. No loss of appetite. Genitourinary: Denies dysuria, increased frequency, urgency. No urinary retention. Musculoskeletal: No myalgias. No muscle weakness, no gait dysfunction, no frequent falls. No back pain. No neck pain. Integumentary: No wounds, no lesions. No rash or pruritus. No unusual bruising. Neurologic: No aphasia. No facial droop. No change in mentation. No head injury. No headache. No paralysis. No paresthesia. Psychiatric: No depression. No anxiety. Endocrine: No abnormal blood sugars. SOCIAL HISTORY Patient is a lifelong nonsmoker. No alcohol, marijuana or illicit drug use. Patient has been for 24 years and lives alone. FAMILY HISTORY Mother at age 93 from heart failure, father at age 75 from heart failure. Patient has 1 brother that at age 79 from heart failure. Patient does not have any sisters. Patient has 3 sons with no major medical problems. PHYSICAL EXAMINATION Gen: This is an 85-year-old female. Patient is sitting up in bed and appears to be comfortable and in no acute distress. No respiratory distress is noted. HEENT: Head is atraumatic, normocephalic. Pupils equal, round. Sclerae is anicteric. NECK: Supple. No JVD. No lymphadenopathy. No thyromegaly. LUNGS: Clear to auscultation. No wheezes or rhonchi. No intercostal retractions. No accessory muscle usage. Patient is not on oxygen therapy. HEART: Regular rate and rhythm. No murmur. ABDOMEN: Soft. Bowel sounds are present. No masses. No tenderness. EXTREMITIES: No pedal edema. No calf tenderness. Dorsalis pedis +2 bilaterally. NEUROLOGICAL: Patient is awake, alert and oriented x3. Cranial nerves 2 through 12 are grossly intact. ASSESSMENT AND PLAN 1. Infected renal stone status post left percutaneous nephrostolithotomy, postop day #2. Continue current pain management and care per Dr. Solis. 2. Episode of Hypoxia without acute hypoxic respiratory failure. Hypoxia most likely related to atelectasis. Chest x-ray is negative. Patient encouraged to increase incentive spirometry use. 3. History of Pseudomonas urinary tract infection requiring IV cefepime as an outpatient. 4. History of myelofibrosis under the care of Dr. Ramirez. Continue Hydrea at home dose. 5. Diabetes mellitus type 2. Continue Tradjenta. 6. Hypertension. Hold amlodipine 5 mg twice daily and lisinopril 20 mg twice daily. 7. GI prophylaxis. Protonix 8. DVT prophylaxis. SCDs and DOYLE hose DISCHARGE PLAN Most likely return home tomorrow. Impression and plan of care have been directed as dictated by the signing physician. Patrica Cuenca nurse practitioner acting as scribe for signing physician. Past Medical History Past Medical History: Blood Disorder, Cancer, Diabetes Mellitus, Hyperlipidemia, Hypertension, Osteoarthritis (OA) Additional Past Medical History / Comment(s): primary myleofibrosis, hx skin cancer, kidney stones, UTI-on antibiotic History of Any Multi-Drug Resistant Organisms: Other MDRO Year Discovered:: 07/14/20 MDRO Source:: urine Past Surgical History: Appendectomy, Back Surgery, Bladder Surgery, Hysterectomy, Orthopedic Surgery, Tonsillectomy Additional Past Surgical History / Comment(s): amanda cataracts, rt wrist surgery- (bone taken from rt elbow and put in rt hand), 3 arthroscopy surgeries rt shoulder, bursa removed from rt leg, left knee arthroscopy, cysts remoed from back, rt foot bunionectomy. left nephrolithotomy with nephrostomy Past Anesthesia/Blood Transfusion Reactions: Previous Problems w/ Anesthesia, Motion Sickness, Postoperative Nausea & Vomiting (PONV) Additional Past Anesthesia/Blood Transfusion Reaction / Comm: had trouble focusing after one surgery Past Psychological History: No Psychological Hx Reported Smoking Status: Never smoker Past Alcohol Use History: None Reported Past Drug Use History: None Reported - Past Family History Mother Family Medical History: No Reported History Medications and Allergies Home Medications Medication Instructions Recorded Confirmed Type Aspirin 325 mg PO DAILY 09/26/16 07/27/20 History Fenofibrate Nanocrystallized 145 mg PO DAILY 09/26/16 07/27/20 History [Tricor] Hydroxyurea 500 mg PO MOTUWETH 09/26/16 07/27/20 History amLODIPine BESYLATE [Norvasc] 5 mg PO BID 09/26/16 07/27/20 History Hydroxyurea [Hydrea] 1,000 mg PO SUFRSA 12/25/18 07/27/20 History sitaGLIPtin [Januvia] 100 mg PO DAILY 12/25/18 07/27/20 History Acetaminophen Tab [Tylenol] 650 mg PO Q6HR PRN tab 01/17/20 07/27/20 Rx Levofloxacin [Levaquin] 500 mg PO DAILY 07/27/20 07/27/20 History lisinopriL [Prinivil] 20 mg PO BID 07/27/20 07/27/20 History Allergies Allergy/AdvReac Type Severity Reaction Status Date / Time meperidine [From Demerol] AdvReac Nausea & Verified 07/31/20 09:59 Vomiting Physical Exam Vitals: Vital Signs Temp Pulse Resp BP BP Pulse Ox 08/02/20 03:09 94 L 08/02/20 01:39 98.3 F 95 18 107/70 94 L 08/01/20 21:21 97.9 F 91 18 93 L 08/01/20 20:10 18 95 08/01/20 20:08 99.3 F 91 18 103/65 08/01/20 14:10 98.1 F 86 16 92/52 94 L 08/01/20 08:08 97.9 F 87 16 92/54 93 L Intake and Output 08/01/20 08/02/20 08/02/20 22:59 06:59 14:59 Intake Total 1790 Output Total 400 1350 Balance 1390 -1350 Intake: Intake, IV Titration 1250 Amount Sodium Chloride 0.45% 1, 750 000 ml @ 75 mls/hr IV . [id number] [facility] Rx#:[id number] Sodium Chloride 0.9% 500 500 ml 500 ml @ 999 mls/hr IV .Q31M ONE Rx#:[id number] Oral 540 Output: Drainage 150 550 Left Flank 150 550 Urine 250 800 Other: Voiding Method Toilet # Voids 1 Results CBC & Chem 7: 08/02/20 03:58 08/02/20 03:58 Labs: Abnormal Lab Results - Last 24 Hours (Table) 08/01/20 08/01/20 08/01/20 Range/Units 07:48 12:18 17:13 RBC (3.80-5.40) m/uL MCV (80.0-100.0) fL MCH (25.0-35.0) pg Plt Count (150-450) k/uL Neutrophils # (1.3-7.7) k/uL Lymphocytes # (1.0-4.8) k/uL Macrocytosis D-Dimer (<0.60) mg/L FEU Sodium (137-145) mmol/L Chloride (98-107) mmol/L Carbon Dioxide (22-30) mmol/L BUN (7-17) mg/dL Creatinine (0.52-1.04) mg/dL Glucose (74-99) mg/dL POC Glucose (mg/dL) 111 H 100 H 106 H (75-99) mg/dL Calcium (8.4-10.2) mg/dL C-Reactive Protein (<10.0) mg/L 08/01/20 08/02/20 08/02/20 Range/Units 20:14 03:58 03:58 RBC 3.44 L (3.80-5.40) m/uL MCV 116.2 H (80.0-100.0) fL MCH 39.5 H (25.0-35.0) pg Plt Count 99 L D (150-450) k/uL Neutrophils # 9.3 H (1.3-7.7) k/uL Lymphocytes # 0.3 L (1.0-4.8) k/uL Macrocytosis Marked A D-Dimer (<0.60) mg/L FEU Sodium 136 L (137-145) mmol/L Chloride 108 H (98-107) mmol/L Carbon Dioxide 19 L (22-30) mmol/L BUN 32 H (7-17) mg/dL Creatinine 1.07 H (0.52-1.04) mg/dL Glucose 100 H (74-99) mg/dL POC Glucose (mg/dL) 117 H (75-99) mg/dL Calcium 7.8 L (8.4-10.2) mg/dL C-Reactive Protein 355.8 H (<10.0) mg/L 08/02/20 08/02/20 Range/Units 03:58 06:35 RBC (3.80-5.40) m/uL MCV (80.0-100.0) fL MCH (25.0-35.0) pg Plt Count (150-450) k/uL Neutrophils # (1.3-7.7) k/uL Lymphocytes # (1.0-4.8) k/uL Macrocytosis D-Dimer 4.34 H (<0.60) mg/L FEU Sodium (137-145) mmol/L Chloride (98-107) mmol/L Carbon Dioxide (22-30) mmol/L BUN (7-17) mg/dL Creatinine (0.52-1.04) mg/dL Glucose (74-99) mg/dL POC Glucose (mg/dL) 105 H (75-99) mg/dL Calcium (8.4-10.2) mg/dL C-Reactive Protein (<10.0) mg/L Microbiology - Last 24 Hours (Table) 07/31/20 10:23 Urine Culture - Preliminary Urine,Voided Gram Neg Bacilli
[2020-08-02] MEDS: METOCLOPRAMIDE 5 MG/ML 2 ML VIAL IVP PRN (11:43)
[2020-08-02 12:42] LABS: Glucose,Whole Blood 101 mg/dL (75-99)
[2020-08-02] MEDS: SENNOSIDES-DOCUSATE SODIUM 1 EACH TAB PO SCH (14:22)
[2020-08-02 17:56] LABS: Glucose,Whole Blood 112 mg/dL (75-99)
[2020-08-02 18:36] LABS: Hemoglobin A1C 6.9 % (4.0-6.0)
[2020-08-02] MEDS: amLODIPine 5 MG TAB PO SCH (19:37)
[2020-08-02] MEDS: lisinopriL 20 MG TAB PO SCH (19:38)
[2020-08-02 21:01] LABS: Glucose,Whole Blood 130 mg/dL (75-99)
[2020-08-03] MEDS: KETOROLAC 15 MG/ML 1 ML VIAL IVP SCH ×3 (02:16→14:45)
[2020-08-03] MEDS: SODIUM CHLORIDE 0.45% 1,000 ML IV SCH ×2 (04:07→09:21)
[2020-08-03 07:03] LABS: Glucose,Whole Blood 94 mg/dL (75-99)
--- NOTE | 2020-08-03 07:37 | P.DS ---
Providers Date of admission: 08/02/20 23:25 Attending physician: Davide Solis Consults: 08/02/20 03:16 Consult Physician Routine Consulting Provider: Adriel Franco Reason/Comments: Medical managment Do you want consulting provider notified?: Yes Primary care physician: Adriel Franco [facility] Course: The patient is 85. She has infected left renal stones. She underwent a percutaneous nephrostolithotomy 07/31/2020. Postoperatively she had some fluid overload requiring some diuretics. She little bit of atelectasis that cleared with incentive spirometry. He had a medical consultation. She continued to improve that. This morning she as well as. She is afebrile. She still has bloody urine in the nephrostomy tube thus this will remain in place it. She'll be discharged home. We will place her on some outpatient IV antibiotics as she has this persistent Pseudomonas urine infection that will require intravenous antibiotics to clear. Her condition is good. She'll be seen in the office next week for nephrostomy tube removal. Plan - Discharge Summary Discharge Rx Participant: Yes New Discharge Prescriptions: New Cephalexin [Keflex] 500 mg PO Q8HR 1 Days #20 cap HYDROcodone/APAP 5-325MG [[place] 5-325] 1 tab PO Q4HR PRN #14 tab PRN Reason: Pain No Action amLODIPine BESYLATE [Norvasc] 5 mg PO BID Fenofibrate Nanocrystallized [Tricor] 145 mg PO DAILY Hydroxyurea 500 mg PO MOTUWETH Aspirin 325 mg PO DAILY sitaGLIPtin [Januvia] 100 mg PO DAILY Hydroxyurea [Hydrea] 1,000 mg PO SUFRSA Acetaminophen Tab [Tylenol] 650 mg PO Q6HR PRN tab PRN Reason: Mild Pain Or Fever > 100.5 Levofloxacin [Levaquin] 500 mg PO DAILY lisinopriL [Prinivil] 20 mg PO BID Discharge Medication List Aspirin 325 mg PO DAILY 09/26/16 [History] Fenofibrate Nanocrystallized [Tricor] 145 mg PO DAILY 09/26/16 [History] Hydroxyurea 500 mg PO MOTUWETH 09/26/16 [History] amLODIPine BESYLATE [Norvasc] 5 mg PO BID 09/26/16 [History] Hydroxyurea [Hydrea] 1,000 mg PO SUFRSA 12/25/18 [History] sitaGLIPtin [Januvia] 100 mg PO DAILY 12/25/18 [History] Acetaminophen Tab [Tylenol] 650 mg PO Q6HR PRN tab 01/17/20 [Rx] Levofloxacin [Levaquin] 500 mg PO DAILY 07/27/20 [History] lisinopriL [Prinivil] 20 mg PO BID 07/27/20 [History] Cephalexin [Keflex] 500 mg PO Q8HR 1 Days #20 cap 08/03/20 [Rx] HYDROcodone/APAP 5-325MG [[place] 5-325] 1 tab PO Q4HR PRN #14 tab 08/03/20 [Rx] Follow up Appointment(s)/Referral(s): Davide Solis MD [STAFF PHYSICIAN] - 08/07/20 (Patient has an appointment to see me on 08/04/2020. At the urine is not clear nephrostomy she should be seen 08/07/2020) Patient Instructions/Handouts: Hydromorphone (By injection), Percutaneous Nephrolithotomy (DC), Pain Management After Surgery (DC), Nephrostomy Tube Care (DC) Activity/Diet/Wound Care/Special Instructions: Home with nephrostomy tube please instruct Discharge Disposition: HOME SELF-CARE
[2020-08-03] MEDS: INSULIN ASPART (NovoLOG) 100 UNIT/ML VIAL SQ SCH ×3 (08:08→17:08)
[2020-08-03 08:16] VITALS: TEMP 98.1
[2020-08-03] MEDS: SENNOSIDES-DOCUSATE SODIUM 1 EACH TAB PO SCH (08:17)
[2020-08-03] MEDS: LEVOFLOXACIN 500 MG TAB PO SCH (08:17)
[2020-08-03] MEDS: PANTOPRAZOLE 40 MG TABLET PO SCH (08:17)
[2020-08-03] MEDS: FENOFIBRATE 160 MG TAB PO SCH (08:17)
[2020-08-03] MEDS: LINAGLIPTIN 5 MG TABLET PO SCH (08:49)
[2020-08-03] MEDS ORDERED: lisinopriL 20 MG TAB PO SCH (09:00)
[2020-08-03] MEDS ORDERED: FUROSEMIDE 20 MG TAB PO SCH (09:00)
[2020-08-03] MEDS ORDERED: amLODIPine 5 MG TAB PO SCH (09:00)
[2020-08-03] MEDS ORDERED: CEFEPIME 2 GM in SODIUM CHLORIDE 0.9% 100 ML IVPB SCH (09:00)
[2020-08-03 10:37] VITALS: PULSE 97
[2020-08-03] MEDS ORDERED: LIDOCAINE 1% INJ 10MG/ML (20 ML MDV) SQ ONE (13:19)
[2020-08-03 13:55] LABS: Glucose,Whole Blood 89 mg/dL (75-99)
--- NOTE | 2020-08-03 14:34 | P.PN ---
Subjective Progress Note Date: 08/03/20 HISTORY OF PRESENT ILLNESS This is an 85-year-old female patient of Dr. Franco with past medical history of diabetes mellitus type 2, hypertension, hyperlipidemia, hypothyr oidism. Patient has history of myelofibrosis under the care of Dr. Ramirez on Hydrea. Patient was last hospitalized in January 2020 and treated for Pseudomonas urinary tract infection with IV cefepime. Patient has been brought into the hospital under the care of Dr. Solis status post cystoscopy, placement of ureteral occluding balloon catheter, her cutaneous nephrostomy with Dr. Bacon, percutaneous nephrostolithotomy laser lithotripsy and placement of a J nephrostomy on July 31. Patient has been afebrile, heart rate in the 90s, blood pressure 107/73 and has been on the lower side. Pulse ox 94% on 3 L nasal cannula. During the night, patient had a pulse ox reading of 88% on room air. She states that she had some midsternal chest pain at that time but has resolved. She denies having any cough or shortness of breath. She states she has some bloating. No fever or chills. No diarrhea. She states her last bowel movement was prior to admission. Patient currently has no shortness of breath and is not requiring oxygen. She is on IV fluids at 75 mL per hour. She had a urine output of 300 after Lasix. She is reaching between 750 on incentive spirometry. Chest x-ray shows no evidence of acute or active process in the chest. Repeat blood work reveals WBC 10.1, hemoglobin 13.6, platelet count 99. D-dimer 4.34. Patient encouraged to get up in a chair today and increase act ivity as well as increase incentive spirometry use. Also Senokot added scheduled starting today for constipation and bloating. The pressure medications will be held for now, monitor blood pressure and reevaluate at the time of discharge. 08/03: Patient is seen today in follow-up. She has crackles in the bilateral lung bases for which Lasix will be added and continued at home for 3 days. She is requiring oxygen this morning she is pulse ox 90-94% on 2 L during the night. Assessment for home oxygen was done and with exercise pulse ox was 93% on room air. No need to set up home oxygen therapy. Urine cultures positive for multidrug-resistant Pseudomonas and patient will be started on cefepime and prescription has been provided for home IV antibiotics. A PICC line is ordered as midline was unable to be obtained today. Patient has been afebrile, heart rate in the 80s and 90s, blood pressure 146/82. Blood sugars running between 89 and 130. Patient will be discharged once home IV antibiotic therapy has been arranged. REVIEW OF SYSTEMS Constitutional: Denies fever, no chills, no night sweats. No weight change. No weakness, fatigue or lethargy. No daytime sleepiness. EENT: No headache. No blurred vision or double vision, no loss of vision. No loss of Hearing, no ringing in the ears, no dizziness. No nasal drainage or congestion. No epistaxis. No sore throat. Lungs: No shortness of breath, occasional cough, no sputum production. No wheezing. Cardiovascular: No chest pain, no lower extremity edema. No palpitations. No paroxysmal nocturnal dyspnea. No orthopnea. No lightheadedness or dizziness. No syncopal episodes. Abdominal: No abdominal pain. Reports bloating. No nausea, vomiting. No diarrhea. Reports constipation. No bloody or tarry stools. No loss of appetite. Genitourinary: Denies dysuria, increased frequency, urgency. No urinary retention. Musculoskeletal: No myalgias. No muscle weakness, no gait dysfunction, no fr equent falls. No back pain. No neck pain. Integumentary: No wounds, no lesions. No rash or pruritus. No unusual bruising. Neurologic: No aphasia. No facial droop. No change in mentation. No head injury. No headache. No paralysis. No paresthesia. Psychiatric: No depression. No anxiety. Endocrine: No abnormal blood sugars. PHYSICAL EXAMINATION Gen: This is an 85-year-old female. Patient is sitting up in bed and appears to be comfortable and in no acute distress. No respiratory distress is noted. HEENT: Head is atraumatic, normocephalic. Pupils equal, round. Sclerae is anicteric. NECK: Supple. No JVD. No lymphadenopathy. No thyromegaly. LUNGS: Crackles in the bilateral bases. No intercostal retractions. No accessory muscle usage. HEART: Regular rate and rhythm. No murmur. ABDOMEN: Soft. Bowel sounds are present. No masses. No tenderness. EXTREMITIES: No pedal edema. No calf tenderness. Dorsalis pedis +2 bilaterally. NEUROLOGICAL: Patient is awake, alert and oriented x3. Cranial nerves 2 through 12 are grossly intact. ASSESSMENT AND PLAN 1. Infected renal stone status post left percutaneous nephrostolithotomy, postop day #2. Continue current pain management and care per Dr. Solis. 2. Episode of Hypoxia without acute hypoxic respiratory failure. Hypoxia most likely related to atelectasis. Chest x-ray is negative. Patient encouraged to increase incentive spirometry use. 3. History of Pseudomonas urinary tract infection requiring IV cefepime as an outpatient. 4. History of myelofibrosis under the care of Dr. Ramirez. Continue Hydrea at home dose. 5. Diabetes mellitus type 2. Continue Tradjenta. 6. Hypertension. Hold amlodipine 5 mg twice daily and lisinopril 20 mg twice daily. 7. GI prophylaxis. Protonix 8. DVT prophylaxis. SCDs and DOYLE hose DISCHARGE PLAN Home with IV antibiotics. Impression and plan of care have been directed as dictated by the signing physician. Patrica Cuenca nurse practitioner acting as scribe for signing physician. Objective - Vital Signs Vital signs: Vital Signs Temp 98.1 F 08/03/20 08:15 Pulse 86 08/03/20 08:15 Resp 18 08/03/20 08:15 BP 146/82 08/03/20 08:15 Pulse Ox 94 L 08/03/20 08:15 Intake & Output 08/02/20 08/03/20 08/03/20 18:59 06:59 18:59 Intake Total 270 Output Total 1525 550 225 Balance -1255 -550 -225 Intake: Oral 270 Output: Drainage 550 200 225 Left Flank 550 200 225 Urine 975 350 Other: Voiding Method Toilet Toilet Toilet # Voids 1 - Labs CBC & Chem 7: 08/02/20 03:58 08/02/20 03:58 Labs: Abnormal Lab Results - Last 24 Hours (Table) 08/02/20 08/02/20 08/02/20 Range/Units 03:58 03:58 12:39 POC Glucose (mg/dL) 101 H (75-99) mg/dL Hemoglobin A1c 6.9 H (4.0-6.0) % Procalcitonin 12.66 H (0.02-0.09) ng/mL 08/02/20 08/02/20 Range/Units 17:54 20:59 POC Glucose (mg/dL) 112 H 130 H (75-99) mg/dL Hemoglobin A1c (4.0-6.0) % Procalcitonin (0.02-0.09) ng/mL Microbiology - Last 24 Hours (Table) 07/31/20 10:23 Urine Culture - Preliminary Urine,Voided Gram Neg Bacilli Pseudomonas aeruginosa
--- NOTE | 2020-08-03 15:41 | IR ---
EXAMINATION TYPE: IR cvc insert >=5 years DATE OF EXAM: 08/03/2020 COMPARISON: NONE CLINICAL HISTORY: Infection Needs long-term intravenous access for antibiotics. PROCEDURE: Hand hygiene obtained with soap and water and alcohol-based hand rub. After informed consent, the skin overlying the left brachial vein was localized with ultrasound and n oted to be compressible and patent. An ultrasound image was obtained and submitted on the patient's chart. The overlying skin was prepped and draped and Lidocaine was used for local anesthesia. A ski n sylvia was made with a scalpel. Access was gained to the vein under ultrasound guidance with a 21 ga uge needle and a 0.018 inch wire was advanced. Access site was dilated with Peel-Away sheath and cat heter tailored to the appropriate length and advanced such that the distal tip is at the cavoatrial j unction. Spot image was obtained verifying placement. Catheter was fixed to the skin and a sterile dressing was placed following hemostasis. Catheter was aspirated and flushed with saline. Patient w as discharged in stable condition without complication. Maximal barrier technique is utilized. Ultra sound image is documented on the chart. Ultrasound used with sterile technique. Fluoro time and fluoroscopic images submitted to document procedure: 0.1 minutes fluoroscopy time, 48 intraoperative images document the procedure IMPRESSION: STATUS POST ULTRASOUND AND FLUOROSCOPIC GUIDED PICC LINE PLACEMENT, READY FOR USE. THIS PROCEDURE WAS PERFORMED BY THE UNDERSIGNED.
[2020-08-03 15:49] VITALS: BP 148/78; RESP 16
[2020-08-03] MEDS ORDERED: CEFEPIME 2 GM in SODIUM CHLORIDE 0.9% 100 ML IVPB ONE (17:00)
== END 2020-08-03 17:52 | disposition home health service (06) | DRG 982 ==
LOC: OR 09:38 → 6PED 15:07 → OR 08-01 13:35 → OBSVTOIN 08-02 23:25
PROVIDERS: ADMIT Urology; ATTEND Urology
PROC: 0T778ZZ Dilation of Left Ureter, Via Natural or Artificial Opening Endoscopic (ICD-10-PCS; principal; 2020-07-31 11:30)
PROC: 0TC13ZZ Extirpation of Matter from Left Kidney, Percutaneous Approach (ICD-10-PCS; principal; 2020-07-31 11:30)
PROC: 02HV33Z Insertion of Infusion Device into Superior Vena Cava, Percutaneous Approach (ICD-10-PCS; 2020-08-03)
DX: E87.70 Fluid overload, unspecified (principal); D47.1 Chronic myeloproliferative disease; N39.0 Urinary tract infection, site not specified; E11.9 Type 2 diabetes mellitus without complications; B96.5 Pseudomonas (aeruginosa) (mallei) (pseudomallei) as the cause of diseases classified elsewhere; E78.5 Hyperlipidemia, unspecified; E03.9 Hypothyroidism, unspecified; R09.02 Hypoxemia; K59.00 Constipation, unspecified; R07.2 Precordial pain; I10 Essential (primary) hypertension; N20.0 Calculus of kidney; M19.90 Unspecified osteoarthritis, unspecified site; Z79.82 Long term (current) use of aspirin; Z79.84 Long term (current) use of oral hypoglycemic drugs; Z79.899 Other long term (current) drug therapy; Z87.442 Personal history of urinary calculi; Z85.828 Personal history of other malignant neoplasm of skin; Z90.49 Acquired absence of other specified parts of digestive tract; Z87.19 Personal history of other diseases of the digestive system; Z90.710 Acquired absence of both cervix and uterus; Z87.42 Personal history of other diseases of the female genital tract; Z90.89 Acquired absence of other organs; Z98.42 Cataract extraction status, left eye; Z98.41 Cataract extraction status, right eye; Z98.890 Other specified postprocedural states; Z87.39 Personal history of other diseases of the musculoskeletal system and connective tissue; Z88.5 Allergy status to narcotic agent; Z82.49 Family history of ischemic heart disease and other diseases of the circulatory system
CPT/HCPCS: 36573; 50432; 71045; 74018; 80048; 81001; 82365; 82728; 83036; 83615; 84145; 85025; 85379; 86140; 86850; 86900; 86901; 87077; 87086; 87186

== ENCOUNTER → 2021-04-26 | Outpatient (CLI) | payer MEDICARE ==
--- NOTE | 2021-04-26 13:34 | XR ---
EXAMINATION TYPE: XR chest 2V DATE OF EXAM: 04/26/2021 COMPARISON: 08/02/2020 TECHNIQUE: PA and lateral views submitted. HISTORY: Cough FINDINGS: Linear subsegmental changes right middle lobe. No pneumothorax or pleural effusion. Hyperinflation escobar ggests COPD there is biapical pleural thickening. Previous surgery right shoulder with arthropathy bi laterally. Use osteopenia. Ectasia and atherosclerotic change aorta. No overt failure. Heart size nor mal. IMPRESSION: 1. COPD. Linear subsegmental changes right middle lobe linear atelectasis over pneumonia correlate cl inically.
== END | disposition home or self-care (01) ==
LOC: LABWHC1 12:48
PROVIDERS: ATTEND Nurse Practitioner Adult Health
DX: D75.81 Myelofibrosis (principal); D47.3 Essential (hemorrhagic) thrombocythemia; D75.9 Disease of blood and blood-forming organs, unspecified; I10 Essential (primary) hypertension
CPT/HCPCS: 36415; 71046; 93005

== ENCOUNTER 2021-04-27 11:52 | Emergency (ER) | payer MEDICARE ==
[2021-04-27 12:01] VITALS: RESP 18; TEMP 98.4
[2021-04-27] MEDS: SODIUM CHLORIDE 0.9% 1,000 ML IV STA (12:58)
--- NOTE | 2021-04-27 13:31 | ED ---
General Adult HPI - General Chief complaint: Recheck/Abnormal Lab/Rx Stated complaint: abn labs Time Seen by Provider: 04/27/21 12:04 Source: patient Mode of arrival: ambulatory Limitations: no limitations - History of Present Illness Initial comments: 85-year-old female taking hydroxyurea for primary myelofibrosis presents to the emergency room for a chief complaint of abnormal labs. Patient states she had routine labs drawn yesterday at her [facility]. Patient sees them for thrombocytosis. Patient states that when she had her labs drawn yesterday something was off and he told her to come to the emergency room. Patient states she is in some minimal heaviness in her chest but otherwise does not have any symptoms. Denies abdominal pain. She does think she looks a little yellow.Patient has no other complaints at this time including shortness of breath, chest pain, abdominal pain, nausea or vomiting, headache, or visual changes. - Related Data Home Medications Medication Instructions Recorded Confirmed Aspirin 325 mg PO DAILY 09/26/16 04/27/21 Fenofibrate Nanocrystallized 145 mg PO DAILY 09/26/16 04/27/21 [Tricor] Hydroxyurea 500 mg PO MOTU 09/26/16 04/27/21 amLODIPine BESYLATE [Norvasc] 5 mg PO BID 09/26/16 04/27/21 Hydroxyurea [Hydrea] 1,000 mg PO SUWETHFRSA 12/25/18 04/27/21 sitaGLIPtin [Januvia] 100 mg PO DAILY 12/25/18 04/27/21 lisinopriL [Prinivil] 20 mg PO BID 07/27/20 04/27/21 Allergies Allergy/AdvReac Type Severity Reaction Status Date / Time meperidine [From Demerol] AdvReac Nausea & Verified 04/27/21 15:10 Vomiting Review of Systems ROS Statement: Those systems with pertinent positive or pertinent negative responses have been documented in the HPI. ROS Other: All systems not noted in ROS Statement are negative. Past Medical History Past Medical History: Blood Disorder, Cancer, Diabetes Mellitus, Hyperlipidemia, Hypertension, Osteoarthritis (OA), Thyroid Disorder Additional Past Medical History / Comment(s): primary myleofibrosis, skin cancer History of Any Multi-Drug Resistant Organisms: None Reported Date of last positivie culture/infection: 07/14/20 MDRO Source:: urine Past Surgical History: Appendectomy, Back Surgery, Bladder Surgery, Hysterectomy, Orthopedic Surgery, Tonsillectomy Additional Past Surgical History / Comment(s): amanda cataracts, rt wrist surgery- (bone taken from rt elbow and put in rt hand), 3 arthroscopy surgeries rt sh [place]ul[place], bursa removed from rt leg, left knee arthroscopy, cysts remoed from back, rt foot bunionectomy. left nephrolithotomy with nephrostomy Past Anesthesia/Blood Transfusion Reactions: Previous Problems w/ Anesthesia, Motion Sickness, Postoperative Nausea & Vomiting (PONV) Additional Past Anesthesia/Blood Transfusion Reaction / Comment(s): had trouble focusing after one surgery Past Psychological History: No Psychological Hx Reported Smoking Status: Never smoker Past Alcohol Use History: None Reported Past Drug Use History: None Reported - Past Family History Mother Family Medical History: No Reported History General Exam Limitations: no limitations General appearance: alert, in no apparent distress Head exam: Present: atraumatic Eye exam: Present: normal appearance, PERRL, EOMI. Absent: scleral icterus, conjunctival injection ENT exam: Present: normal exam, mucous membranes moist Neck exam: Present: normal inspection, full ROM. Absent: tenderness Respiratory exam: Present: normal lung sounds bilaterally. Absent: respiratory distress, wheezes Cardiovascular Exam: Present: regular rate, normal rhythm, normal heart sounds GI/Abdominal exam: Present: soft, normal bowel sounds. Absent: distended, tenderness, guarding, rebound Neurological exam: Present: alert Course Vital Signs 04/27/21 04/27/21 04/27/21 11:58 13:01 14:10 Temperature 98.4 F Pulse Rate 113 H 70 74 Respiratory 18 18 18 Rate Blood Pressure 125/82 128/62 130/69 O2 Sat by Pulse 98 98 98 Oximetry 04/27/21 15:12 Temperature Pulse Rate 78 Respiratory 18 Rate Blood Pressure 129/77 O2 Sat by Pulse 98 Oximetry Medical Decision Making - Medical Decision Making vitals are stable. Patient is afebrile although does report fevers up to 101 over the past week at home. CBC is unremarkable. CMP however shows hyperbilirubinemia of 7.2 gallbladder ultrasound shows a new mild to moderate biliary dilation 1.5 cm. Gallstones in her gallbladder sludge without secondary ultrasound evidence for acute cholecystitis. Consider obstructing CBD stone. Further investigation with ERCP or MRCP is warranted. Given fevers over the past week there is concern that patient has an ascending cholangitis. Was started on Zosyn. Patient will need to be transferred as this facility does not have GI. [facility] did accept - Lab Data Result diagrams: 04/27/21 13:09 04/27/21 13:09 Lab Results 04/27/21 04/27/21 04/27/21 Range/Units 13:09 13:09 13:09 WBC 3.7 L (3.8-10.6) k/uL RBC 3.00 L (3.80-5.40) m/uL Hgb 12.6 (11.4-16.0) gm/dL Hct 38.4 (34.0-46.0) % MCV 128.1 H (80.0-100.0) fL MCH 42.0 H (25.0-35.0) pg MCHC 32.8 (31.0-37.0) g/dL RDW 15.4 (11.5-15.5) % Plt Count 131 L (150-450) k/uL MPV 8.7 Neutrophils % 79 % Lymphocytes % 10 % Monocytes % 8 % Eosinophils % 0 % Basophils % 0 % Neutrophils # 2.9 (1.3-7.7) k/uL Lymphocytes # 0.4 L (1.0-4.8) k/uL Monocytes # 0.3 (0-1.0) k/uL Eosinophils # 0.0 (0-0.7) k/uL Basophils # 0.0 (0-0.2) k/uL Manual Slide Review Performed Macrocytosis Marked A PT 11.1 (9.0-12.0) sec INR 1.0 (<1.2) APTT 26.6 (22.0-30.0) sec Sodium (137-145) mmol/L Potassium (3.5-5.1) mmol/L Chloride (98-107) mmol/L Carbon Dioxide (22-30) mmol/L Anion Gap mmol/L BUN (7-17) mg/dL Creatinine (0.52-1.04) mg/dL Est GFR (CKD-EPI)AfAm (>60 ml/min/1.73 sqM) Est GFR (CKD-EPI)NonAf (>60 ml/min/1.73 sqM) Glucose (74-99) mg/dL Calcium (8.4-10.2) mg/dL Total Bilirubin (0.2-1.3) mg/dL Conjugated Bilirubin (0.0-0.3) mg/dL Unconjugated Bilirubin (0.0-1.1) mg/dL Delta Bilirubin (0.0-0.2) mg/dL AST (14-36) U/L ALT (4-34) U/L Alkaline Phosphatase (38-126) U/L Troponin I (0.000-0.034) ng/mL Total Protein (6.3-8.2) g/dL Albumin (3.5-5.0) g/dL Amylase (30-110) U/L Lipase (23-300) U/L Urine Color Dark Brown Urine Appearance Cloudy H (Clear) Urine pH 6.0 (5.0-8.0) Ur Specific [place] 1.019 (1.001-1.035) Urine Protein Trace H (Negative) Urine Glucose (UA) Negative (Negative) Urine Ketones Negative (Negative) Urine Blood Negative (Negative) Urine Nitrite Negative (Negative) Urine Bilirubin 2+ H (Negative) Urine Urobilinogen 8.0 (<2.0) mg/dL Ur Leukocyte Esterase Moderate H (Negative) Urine RBC 2 (0-5) /hpf Urine WBC 8 H (0-5) /hpf Ur Squamous Epith Cells 2 (0-4) /hpf Calcium Oxalate Crystal Occasional H (None) /hpf Urine Mucus Occasional H (None) /hpf Urine Yeast (Budding) Occasional H (None) /hpf Coronavirus (PCR) (Not Detectd) 04/27/21 04/27/21 04/27/21 Range/Units 13:09 13:09 13:09 WBC (3.8-10.6) k/uL RBC (3.80-5.40) m/uL Hgb (11.4-16.0) gm/dL Hct (34.0-46.0) % MCV (80.0-100.0) fL MCH (25.0-35.0) pg MCHC (31.0-37.0) g/dL RDW (11.5-15.5) % Plt Count (150-450) k/uL MPV Neutrophils % % Lymphocytes % % Monocytes % % Eosinophils % % Basophils % % Neutrophils # (1.3-7.7) k/uL Lymphocytes # (1.0-4.8) k/uL Monocytes # (0-1.0) k/uL Eosinophils # (0-0.7) k/uL Basophils # (0-0.2) k/uL Manual Slide Review Macrocytosis PT (9.0-12.0) sec INR (<1.2) APTT (22.0-30.0) sec Sodium 139 (137-145) mmol/L Potassium 3.1 L (3.5-5.1) mmol/L Chloride 105 (98-107) mmol/L Carbon Dioxide 22 (22-30) mmol/L Anion Gap 12 mmol/L BUN 21 H (7-17) mg/dL Creatinine 0.80 (0.52-1.04) mg/dL Est GFR (CKD-EPI)AfAm 77 (>60 ml/min/1.73 sqM) Est GFR (CKD-EPI)NonAf 67 (>60 ml/min/1.73 sqM) Glucose 121 H (74-99) mg/dL Calcium 9.1 (8.4-10.2) mg/dL Total Bilirubin 7.2 H (0.2-1.3) mg/dL Conjugated Bilirubin 4.1 H (0.0-0.3) mg/dL Unconjugated Bilirubin 1.0 (0.0-1.1) mg/dL Delta Bilirubin 2.1 H (0.0-0.2) mg/dL AST 123 H (14-36) U/L ALT 66 H (4-34) U/L Alkaline Phosphatase 111 (38-126) U/L Troponin I <0.012 (0.000-0.034) ng/mL Total Protein 6.4 (6.3-8.2) g/dL Albumin 3.5 (3.5-5.0) g/dL Amylase 48 (30-110) U/L Lipase 83 (23-300) U/L Urine Color Urine Appearance (Clear) Urine pH (5.0-8.0) Ur Specific [place] (1.001-1.035) Urine Protein (Negative) Urine Glucose (UA) (Negative) Urine Ketones (Negative) Urine Blood (Negative) Urine Nitrite (Negative) Urine Bilirubin (Negative) Urine Urobilinogen (<2.0) mg/dL Ur Leukocyte Esterase (Negative) Urine RBC (0-5) /hpf Urine WBC (0-5) /hpf Ur Squamous Epith Cells (0-4) /hpf Calcium Oxalate Crystal (None) /hpf Urine Mucus (None) /hpf Urine Yeast (Budding) (None) /hpf Coronavirus (PCR) Not Detected (Not Detectd) Disposition Clinical Impression: History of fever, Hyperbilirubinemia, Choledocholithiasis with obstruction Narrative: possible ascending cholangitis Disposition: OTHER INSTITUTION NOT DEFINED Is patient prescribed a controlled substance at d/c from ED?: No Referrals: Adriel Franco MD [Primary Care Provider] - 1-2 days Time of Disposition: 14:30 - Out of Hospital Transfer - Req. Specs Out of Hospital Transfer - Requested Specifics: Other Emergency Center ([facility])
--- NOTE | 2021-04-27 13:47 | US ---
EXAMINATION TYPE: US gallbladder DATE OF EXAM: 04/27/2021 COMPARISON: NONE CLINICAL HISTORY: jaundice, hyperbilirubinemia. EXAM MEASUREMENTS: Liver Length: 13.3 cm Gallbladder Wall: 0.3 cm CBD: 1.5 cm Right Kidney: 11.4 x 4.8 x 5.4 cm Pancreas: visualized portions wnl Liver: wnl Gallbladder: sludge noted Evidence for sonographic Goodson's sign: No CBD: dilated to pancreas head Right Kidney: No hydronephrosis or masses seen Visualized liver is heterogeneously hyperechoic in appearance. New intrahepatic biliary dilatation i s suspected. Evaluation for focal masses suboptimal due to the heterogeneity. No surrounding ascites. Gallbladder has distended margins with dependent small stones and/or gallbladder sludge. No abnormal wall thickening or surrounding fluid. Sonographic Goodson sign negative. Common bile duct is moderatel y dilated. No hydronephrosis. IMPRESSION: New Mild/moderate biliary dilatation. Gallstones and/or gallbladder sludge without secon anthony ultrasound evidence for acute cholecystitis. Consider obstructing CBD stone. Further investigati on with ERCP or MRCP is warranted.
[2021-04-27 13:51] LABS: Appearance,Urine Cloudy (Clear); Bilirubin,Urine 2+ (Negative); Blood,Urine Negative (Negative); Budding Yeast,Urine Occasional /hpf; Calcium Oxalate Crystals,Urine Occasional /hpf; Color,Urine Dark Brown; Glucose,Urine (UA) Negative (Negative); Ketones,Urine Negative (Negative); Leukocyte Esterase,Urine Moderate (Negative); Mucus,Urine Occasional /hpf; Nitrite,Urine Negative (Negative); Protein,Urine Trace (Negative); RBC,Urine 2 /hpf (0-5); Specific Gravity,Urine 1.019 (1.001-1.035); Squamous Epithelial Cell,Urine 2 /hpf (0-4); WBC,Urine 8 /hpf (0-5)
[2021-04-27 13:52] LABS: Albumin 3.5 g/dL (3.5-5.0); Bilirubin, Conjugated 4.1 mg/dL (0.0-0.3); Bilirubin, Delta 2.1 mg/dL (0.0-0.2); Calcium 9.1 mg/dL (8.4-10.2); Potassium 3.1 mmol/L (3.5-5.1); Total Bilirubin 7.2 mg/dL (0.2-1.3); Total Protein 6.4 g/dL (6.3-8.2)
[2021-04-27 13:56] LABS: Partial Thromboplastin Time 26.6 sec (22.0-30.0); Prothrombin Time 11.1 sec (9.0-12.0)
[2021-04-27 14:09] LABS: Basophils % (A) 0 %; Eosinophils % (A) 0 %; HCT 38.4 % (34.0-46.0); HGB 12.6 gm/dL (11.4-16.0); Lymphocytes # (A) 0.4 k/uL (1.0-4.8); Lymphocytes % (A) 10 %; MCHC 32.8 g/dL (31.0-37.0); MCV 128.1 fL (80.0-100.0); Macrocytosis Marked; Mean Platelet Volume 8.7; Monocytes # (A) 0.3 k/uL (0-1.0); Monocytes % (A) 8 %; Neutrophils # (A) 2.9 k/uL (1.3-7.7); Neutrophils % (A) 79 %; Platelet Count 131 k/uL (150-450); RDW 15.4 % (11.5-15.5); WBC 3.7 k/uL (3.8-10.6)
[2021-04-27] MEDS: PIPERACILLIN-TAZOBACTAM 3.375 GM in SODIUM CHLORIDE 0.9% 100 ML IVPB STA (15:04)
[2021-04-27 15:13] VITALS: BP 129/77; PULSE 78
== END 2021-04-27 16:15 | disposition other institution (70) ==
LOC: EC 11:52
DX: E80.6 Other disorders of bilirubin metabolism (principal); K80.51 Calculus of bile duct without cholangitis or cholecystitis with obstruction; E11.9 Type 2 diabetes mellitus without complications; I10 Essential (primary) hypertension; E78.5 Hyperlipidemia, unspecified; M19.90 Unspecified osteoarthritis, unspecified site; Z79.82 Long term (current) use of aspirin; Z79.84 Long term (current) use of oral hypoglycemic drugs; Z79.899 Other long term (current) drug therapy
CPT/HCPCS: 36415; 93005; 80053; 82150; 82248; 83690; 84484; 85025; 85610; 85730; 81001; 87040; 87635; 76705; 99285; 96365; 96361 ×2; J2543

== ENCOUNTER → 2022-03-14 | Outpatient (CLI) | payer MEDICARE ==
--- NOTE | 2022-03-14 11:49 | XR ---
EXAMINATION TYPE: XR chest 2V DATE OF EXAM: 03/14/2022 COMPARISON: 04/26/2021 TECHNIQUE: PA and lateral views submitted. HISTORY: Shortness of breath FINDINGS: The lungs are clear and there is no pneumothorax, pleural effusion, or focal pneumonia. Correlate f or prior rotator cuff surgery arthropathy of the shoulders bilaterally. Ectasia of the aorta with ath erosclerotic change. Hyperinflation compatible COPD. Coarsened interstitium suggesting degree of unde rlying pulmonary fibrosis. Subsegmental changes seen on the lateral view stable from prior exam likel y basis of chronic atelectasis. IMPRESSION: 1. No acute process. Correlate for COPD and chronic interstitial pulmonary fibrosis.
== END | disposition home or self-care (01) ==
LOC: RADXRMAIN 11:25
PROVIDERS: ATTEND Internal Medicine Geriatric Medicine
DX: R06.02 Shortness of breath (principal)
CPT/HCPCS: 71046

== ENCOUNTER → 2022-06-06 | Outpatient (CLI) | payer MEDICARE ==
--- NOTE | 2022-06-06 11:23 | XR ---
EXAMINATION TYPE: XR chest 2V DATE OF EXAM: 06/06/2022 COMPARISON: NONE TECHNIQUE: PA and lateral views submitted. HISTORY: Shortness of breath FINDINGS: The lungs are clear and there is no pneumothorax, pleural effusion, or focal pneumonia. Heart size normal and no overt failure. Osseous structures demonstrate hypertrophic and degenerative changes of the spine. Coarsened interstitium. Hyperinflation. Ectasia of the aorta. Arthropathy of the shoulders . Biapical pleural thickening. Atherosclerotic change aorta. IMPRESSION: 1. No acute process. Correlate for COPD and mild pulmonary chronic interstitial lung disease or fibro sis.
== END | disposition home or self-care (01) ==
LOC: RADXRMAIN 10:55
PROVIDERS: ATTEND Internal Medicine Geriatric Medicine
DX: J84.10 Pulmonary fibrosis, unspecified (principal); J44.9 Chronic obstructive pulmonary disease, unspecified
CPT/HCPCS: 71046

== ENCOUNTER → 2022-08-05 | Outpatient (CLI) | payer MEDICARE ==
--- NOTE | 2022-08-05 15:16 | MR ---
EXAMINATION TYPE: MR MRCP DATE OF EXAM: 08/05/2022 10:49 AM CLINICAL INDICATION:Female, 87 years old with history of K83.09 OTHER CHOLANGITIS; STOMACH ISSUES- GA LL STONES COMPARISON: CT 07/12/2020 ultrasound 04/27/2021 TECHNIQUE: Multi planar, T2-weighted imaging with and without fat saturation and chemical shift imag ing was performed of the abdomen. Then, heavily T2 weighted imaging (half-Fourier acquisition single- shot turbo spin-echo) was utilized in order to study the biliary system. Maximum intensity projectio n images were reconstructed from the original data of the biliary tree. 3D images were created on a [employer] work station. No Gadolinium given. FINDINGS: Motion artifact limits evaluation slightly. MRCP: The intrahepatic ducts are mildly dilated centrally. The common bile duct at the level of the pancreatic head measures 11 mm in size. The common hepatic duct measures 14 mm in size. The pancrea tic duct is normal. The gallbladder appears to have a anatomic variant cystic duct low medial insert ion to the common duct. Filling defect within the common duct series 901 image 27 is present. Abdomen: Liver: Mild signal dropout on out of phase chemical shift imaging. Gallbladder and Bile ducts: Unremarkable. Pancreas: No ductal dilation. Spleen: Unremarkable. Adrenal glands: Unremarkable. Kidneys: Bilateral peripelvic cysts are seen within the renal sinuses. No evidence or obstruction. Ri ght high T2 signal simple renal cyst. Stomach and Bowel: Unremarkable as visualized. Peritoneum: No evidence of pneumoperitoneum, free fluid, or adenopathy. Vasculature: Unremarkable. No aortic aneurysm. Abdominal wall: Unremarkable. Musculoskeletal: The osseous structures appear intact. Multilevel disc degeneration changes throughou t the spine. T12-T2 high T1 signal probable hemangioma. IMPRESSION: 1. Common bile duct choledocholith series 901 image 27, with dilation of the extrahepatic and centra l intrahepatic biliary system. ERCP recommended. 2. Anatomic variant low medial insertion of the cystic duct. 3. No evidence to suggest ductal stricture. 4. No evidence for cholelithiasis. 5. Simple right renal cyst.
== END | disposition home or self-care (01) ==
LOC: RADMRIMAIN 09:14
PROVIDERS: ATTEND Internal Medicine Geriatric Medicine
DX: K80.70 Calculus of gallbladder and bile duct without cholecystitis without obstruction (principal); N28.1 Cyst of kidney, acquired; K83.8 Other specified diseases of biliary tract; K83.09 Other cholangitis
CPT/HCPCS: 74181

== ENCOUNTER 2022-09-28 05:39 | Observation (INO) | payer MEDICARE ==
[2022-09-28] MEDS ORDERED: ACETAMINOPHEN IV (For NPO) 1,000 MG in EMPTY BAG 1 BAG IVPB STA (06:03)
[2022-09-28] MEDS ORDERED: SODIUM CHLORIDE 0.9% 1,000 ML IV STA (06:04)
[2022-09-28] MEDS ORDERED: ONDANSETRON 4 MG/2 ML VIAL IVP STA (06:05)
[2022-09-28 06:13] LABS: Anisocytosis Slight; Basophils % (A) 0 %; Eosinophils # (A) 0.1 k/uL (0-0.7); Eosinophils % (A) 2 %; HCT 53.2 % (34.0-46.0); HGB 16.8 gm/dL (11.4-16.0); Hypochromasia Slight; Lymphocytes # (A) 0.3 k/uL (1.0-4.8); Lymphocytes % (A) 6 %; MCH 33.7 pg (25.0-35.0); MCHC 31.7 g/dL (31.0-37.0); MCV 106.3 fL (80.0-100.0); Macrocytosis Marked; Mean Platelet Volume 8.6; Monocytes # (A) 0.3 k/uL (0-1.0); Monocytes % (A) 5 %; Neutrophils # (A) 4.4 k/uL (1.3-7.7); Neutrophils % (A) 85 %; Platelet Count 163 k/uL (150-450); RBC 5.01 m/uL (3.80-5.40); RDW 16.8 % (11.5-15.5); WBC 5.2 k/uL (3.8-10.6)
--- NOTE | 2022-09-28 06:14 | ED ---
General Adult HPI - General Source: patient, EMS, RN notes reviewed, old records reviewed Mode of arrival: EMS Limitations: no limitations <Jass Gunter - Last Filed: 09/28/22 06:09> <Juan Pablo Ramirez - Last Filed: 09/28/22 11:10> - General Chief complaint: Fever Stated complaint: Nausea, Vomiting, Fever Time Seen by Provider: 09/28/22 05:58 - History of Present Illness Initial comments: 87-year-old female presents for evaluation of fever and vomiting. Patient's symptoms began within the last 12 hours. Patient states she vomited 3 times prior to arrival. She had chills at home. No cough. No dyspnea. No dysuria or hematuria. Patient is currently being worked up for suspected choledocholithiasis. She states she had an ERCP performed earlier this week with no intervention. She had MRI performed yesterday which sounds was an MRCP this was performed at [facility]. Her ERCP was performed at [facility] in [place]. She denies abdominal pain, no right upper quadrant pain. No rash. No URI symptoms. (Jass Gunter) - Related Data Home Medications Medication Instructions Recorded Confirmed Aspirin 325 mg PO DAILY 09/26/16 04/27/21 Fenofibrate Nanocrystallized 145 mg PO DAILY 09/26/16 04/27/21 [Tricor] Hydroxyurea 500 mg PO MOTU 09/26/16 04/27/21 amLODIPine BESYLATE [Norvasc] 5 mg PO BID 09/26/16 04/27/21 Hydroxyurea [Hydrea] 1,000 mg PO SUWETHFRSA 12/25/18 04/27/21 sitaGLIPtin [Januvia] 100 mg PO DAILY 12/25/18 04/27/21 lisinopriL [Prinivil] 20 mg PO BID 07/27/20 04/27/21 Allergies Allergy/AdvReac Type Severity Reaction Status Date / Time meperidine [From Demerol] AdvReac Nausea & Verified 04/27/21 15:10 Vomiting Review of Systems ROS Other: All systems not noted in ROS Statement are negative. <Jass Gunter - Last Filed: 09/28/22 06:09> ROS Other: All systems not noted in ROS Statement are negative. <Juan Pablo Ramirez - Last Filed: 09/28/22 11:10> ROS Statement: Those systems with pertinent positive or pertinent negative responses have been documented in the HPI. Past Medical History Past Medical History: Blood Disorder, Cancer, Diabetes Mellitus, Hyperlipidemia, Hypertension, Osteoarthritis (OA), Thyroid Disorder Additional Past Medical History / Comment(s): primary myleofibrosis, skin cancer History of Any Multi-Drug Resistant Organisms: None Reported Date of last positivie culture/infection: 07/14/20 MDRO Source:: urine Past Surgical History: Appendectomy, Back Surgery, Bladder Surgery, Hysterectomy, Orthopedic Surgery, Tonsillectomy Additional Past Surgical History / Comment(s): amanda cataracts, rt wrist surgery- (bone taken from rt elbow and put in rt hand), 3 arthroscopy surgeries rt shoulder, bursa removed from rt leg, left knee arthroscopy, cysts remoed from back, rt foot bunionectomy. left nephrolithotomy with nephrostomy Past Anesthesia/Blood Transfusion Reactions: Previous Problems w/ Anesthesia, Motion Sickness, Postoperative Nausea & Vomiting (PONV) Additional Past Anesthesia/Blood Transfusion Reaction / Comment(s): had trouble focusing after one surgery Past Psychological History: No Psychological Hx Reported Smoking Status: Never smoker Past Alcohol Use History: None Reported Past Drug Use History: None Reported - Past Family History Mother Family Medical History: No Reported History <Jass Gunter - Last Filed: 09/28/22 06:09> General Exam Limitations: no limitations General appearance: alert, in no apparent distress Head exam: Present: atraumatic, normocephalic Eye exam: Present: normal appearance, PERRL ENT exam: Present: mucous membranes dry Neck exam: Present: normal inspection. Absent: tenderness, meningismus Respiratory exam: Present: normal lung sounds bilaterally. Absent: respiratory distress, wheezes Cardiovascular Exam: Present: normal rhythm, tachycardia GI/Abdominal exam: Present: soft. Absent: distended, tenderness, guarding, rebound, rigid Neurological exam: Present: alert Psychiatric exam: Present: normal affect, normal mood Skin exam: Present: warm, dry, intact <Jass Gunter - Last Filed: 09/28/22 06:09> Course <Jass Gunter - Last Filed: 09/28/22 06:09> Vital Signs 09/28/22 09/28/22 09/28/22 05:43 07:21 08:20 Temperature 101.2 F H 100.2 F H Pulse Rate 110 H 99 91 Respiratory 20 22 22 Rate Blood Pressure 128/69 130/63 111/55 O2 Sat by Pulse 92 L 92 L 92 L Oximetry 09/28/22 09/28/22 09/28/22 09:12 10:04 10:07 Temperature 99.7 F H Pulse Rate 84 80 Respiratory 20 20 Rate Blood Pressure 106/56 107/62 O2 Sat by Pulse 90 L 89 L 90 L Oximetry 09/28/22 11:00 Temperature Pulse Rate Respiratory Rate Blood Pressure 107/62 O2 Sat by Pulse 94 L Oximetry - Reevaluation(s) Reevaluation #1: 09/28/22 0700 Patient care signed out to Dr. Ramirez at shift change awaiting completed workup and final disposition. (Jass Gunter) Medical Decision Making <Jass Gunter - Last Filed: 09/28/22 06:09> - Lab Data Result diagrams: 09/28/22 05:50 09/28/22 05:50 <Juan Pablo Ramirez - Last Filed: 09/28/22 11:10> - Medical Decision Making Was pt. sent in by a medical professional or institution (, PA, SUPPLY PERSON, urgent care, hospital, or senior living...) When possible be specific @ -No Did you speak to anyone other than the patient for history (EMS, parent, family, police, friend...)? What history was obtained from this source @Paramedics Did you review nursing and triage notes (agree or disagree)? Why? @ -I reviewed and agree with nursing and triage notes Were old charts reviewed (outside hosp., previous admission, EMS record, old EKG, old radiological studies, urgent care reports/EKG's, senior living records)? Report findings @ -No old charts were reviewed Differential Diagnosis (chest pain, altered mental status, abdominal pain women, abdominal pain men, vaginal bleeding, weakness, fever, dyspnea, syncope, headache, dizziness, GI bleed, back pain, seizure, CVA, palpatations, mental health, musculoskeletal)? @ -Differential Fever: Pneumonia, viral URI, endocarditis, myocarditis, pericarditis, otitis, sinusitis, peritonsillar Abscess, retropharyngeal Abscess, epiglottitis, peritonitis, appendicitis, acute cholecystitis, ascending cholangitis,diverticulitis, hepatitis, colitis, UTI, PID, TOA, pyelonephritis, prostatitis, epididymitis, meningitis, encephalitis, pulmonary embolism, CVA, thyroid storm, pancreatitis, adrenal crisis, cavernous sinus thrombosis, this is not meant to be an all-inclusive list. EKG interpreted by me (3pts min.). @ -As above X-rays interpreted by me (1pt min.). @Chest x-ray pending CT interpreted by me (1pt min.). @ -None done U/S interpreted by me (1pt. min.). @ -Right upper quadrant ultrasound pending What testing was considered but not performed or refused? (CT, X-rays, U/S, labs)? Why? @ -None What meds were considered but not given or refused? Why? @ -None Did you discuss the management of the patient with other professionals (professionals i.e. , PA, SUPPLY PERSON, lab, RT, psych nurse, health care social worker, muskrat trapper, teacher, chief media officer, family caseworker)? Give summary @ -No Was smoking cessation discussed for >3mins.? @ -No Was critical care preformed (if so, how long)? @ -No Were there social determinants of health that impacted care today? How? (Homelessness, low income, unemployed, alcoholism, drug addiction, transportation, low edu. Level, literacy, decrease access to med. care, snf, rehab)? @ -No Was there de-escalation of care discussed even if they declined (Discuss DNR or withdrawal of care, Hospice)? DNR status @ -No What co-morbidities impacted this encounter? (DM, HTN, Smoking, COPD, CAD, Can cer, CVA, ARF, Chemo, Hep., AIDS, mental health diagnosis, sleep apnea, morbid obesity)? @ -Diabetes Was patient admitted / discharged? Hospital course, mention meds given and route, prescriptions, significant lab abnormalities, going to OR and other pertinent info. @ -Patient's care is signed out at shift change (Jass Gunter) Patient is signed out to me by previous shift physician, Dr. Gunter. Briefly patient is a 87-year-old female presents to the emergency department with constitutional symptoms. She was febrile on arrival with temperature of 101.2. She did not have any obvious localizing symptoms. She recently had GI procedure performed however she does not have any abdominal pain. Patient evaluated at the bedside at 11:00 and found to be stable medical condition. She does not have any localizing symptoms. No leukocytosis. Labs within acceptable limits except for some very minimal lactic acidosis 2.2. Urinalysis negative. Patient will be admitted observation for medical monitoring. (Juan Pablo Ramirez) - Lab Data Lab Results 09/28/22 09/28/22 09/28/22 Range/Units 05:50 05:50 05:50 WBC 5.2 (3.8-10.6) k/uL RBC 5.01 (3.80-5.40) m/uL Hgb 16.8 H (11.4-16.0) gm/dL Hct 53.2 H (34.0-46.0) % MCV 106.3 H (80.0-100.0) fL MCH 33.7 (25.0-35.0) pg MCHC 31.7 (31.0-37.0) g/dL RDW 16.8 H (11.5-15.5) % Plt Count 163 (150-450) k/uL MPV 8.6 Neutrophils % 85 % Lymphocytes % 6 % Monocytes % 5 % Eosinophils % 2 % Basophils % 0 % Neutrophils # 4.4 (1.3-7.7) k/uL Lymphocytes # 0.3 L (1.0-4.8) k/uL Monocytes # 0.3 (0-1.0) k/uL Eosinophils # 0.1 (0-0.7) k/uL Basophils # 0.0 (0-0.2) k/uL Manual Slide Review Performed Hypochromasia Slight Anisocytosis Slight Macrocytosis Marked A PT (9.0-12.0) sec INR (<1.2) APTT (22.0-30.0) sec Sodium 140 (137-145) mmol/L Potassium 3.9 (3.5-5.1) mmol/L Chloride 108 H (98-107) mmol/L Carbon Dioxide 20 L (22-30) mmol/L Anion Gap 12 mmol/L BUN 18 H (7-17) mg/dL Creatinine 0.60 (0.52-1.04) mg/dL Est GFR (CKD-EPI)AfAm >90 (>60 ml/min/1.73 sqM) Est GFR (CKD-EPI)NonAf 81 (>60 ml/min/1.73 sqM) Glucose 194 H (74-99) mg/dL Lactic Ac Sepsis Rflx Plasma Lactic Acid Ilia 2.2 H* (0.7-2.0) mmol/L Calcium 8.4 (8.4-10.2) mg/dL Magnesium 1.4 L (1.6-2.3) mg/dL Total Bilirubin 4.0 H (0.2-1.3) mg/dL AST 274 H (14-36) U/L ALT 95 H (4-34) U/L Alkaline Phosphatase 367 H (38-126) U/L Total Protein 6.3 (6.3-8.2) g/dL Albumin 3.8 (3.5-5.0) g/dL Urine Color Urine Appearance (Clear) Urine pH (5.0-8.0) Ur Specific [place] (1.001-1.035) Urine Protein (Negative) Urine Glucose (UA) (Negative) Urine Ketones (Negative) Urine Blood (Negative) Urine Nitrite (Negative) Urine Bilirubin (Negative) Urine Urobilinogen (<2.0) mg/dL Ur Leukocyte Esterase (Negative) Urine RBC (0-5) /hpf Urine WBC (0-5) /hpf Ur Squamous Epith Cells (0-4) /hpf Hyaline Casts (0-2) /lpf Urine Mucus (None) /hpf Influenza Type A (PCR) (Not Detectd) Influenza Type B (PCR) (Not Detectd) RSV (PCR) (Not Detectd) SARS-CoV-2 (PCR) (Not Detectd) 09/28/22 09/28/22 09/28/22 Range/Units 05:50 06:27 08:08 WBC (3.8-10.6) k/uL RBC (3.80-5.40) m/uL Hgb (11.4-16.0) gm/dL Hct (34.0-46.0) % MCV (80.0-100.0) fL MCH (25.0-35.0) pg MCHC (31.0-37.0) g/dL RDW (11.5-15.5) % Plt Count (150-450) k/uL MPV Neutrophils % % Lymphocytes % % Monocytes % % Eosinophils % % Basophils % % Neutrophils # (1.3-7.7) k/uL Lymphocytes # (1.0-4.8) k/uL Monocytes # (0-1.0) k/uL Eosinophils # (0-0.7) k/uL Basophils # (0-0.2) k/uL Manual Slide Review Hypochromasia Anisocytosis Macrocytosis PT 11.2 (9.0-12.0) sec INR 1.1 (<1.2) APTT 24.6 (22.0-30.0) sec Sodium (137-145) mmol/L Potassium (3.5-5.1) mmol/L Chloride (98-107) mmol/L Carbon Dioxide (22-30) mmol/L Anion Gap mmol/L BUN (7-17) mg/dL Creatinine (0.52-1.04) mg/dL Est GFR (CKD-EPI)AfAm (>60 ml/min/1.73 sqM) Est GFR (CKD-EPI)NonAf (>60 ml/min/1.73 sqM) Glucose (74-99) mg/dL Lactic Ac Sepsis Rflx Y Plasma Lactic Acid Ilia (0.7-2.0) mmol/L Calcium (8.4-10.2) mg/dL Magnesium (1.6-2.3) mg/dL Total Bilirubin (0.2-1.3) mg/dL AST (14-36) U/L ALT (4-34) U/L Alkaline Phosphatase (38-126) U/L Total Protein (6.3-8.2) g/dL Albumin (3.5-5.0) g/dL Urine Color Urine Appearance (Clear) Urine pH (5.0-8.0) Ur Specific [place] (1.001-1.035) Urine Protein (Negative) Urine Glucose (UA) (Negative) Urine Ketones (Negative) Urine Blood (Negative) Urine Nitrite (Negative) Urine Bilirubin (Negative) Urine Urobilinogen (<2.0) mg/dL Ur Leukocyte Esterase (Negative) Urine RBC (0-5) /hpf Urine WBC (0-5) /hpf Ur Squamous Epith Cells (0-4) /hpf Hyaline Casts (0-2) /lpf Urine Mucus (None) /hpf Influenza Type A (PCR) Not Detected (Not Detectd) Influenza Type B (PCR) Not Detected (Not Detectd) RSV (PCR) Not Detected (Not Detectd) SARS-CoV-2 (PCR) Not Detected (Not Detectd) 09/28/22 09/28/22 Range/Units 08:20 09:20 WBC (3.8-10.6) k/uL RBC (3.80-5.40) m/uL Hgb (11.4-16.0) gm/dL Hct (34.0-46.0) % MCV (80.0-100.0) fL MCH (25.0-35.0) pg MCHC (31.0-37.0) g/dL RDW (11.5-15.5) % Plt Count (150-450) k/uL MPV Neutrophils % % Lymphocytes % % Monocytes % % Eosinophils % % Basophils % % Neutrophils # (1.3-7.7) k/uL Lymphocytes # (1.0-4.8) k/uL Monocytes # (0-1.0) k/uL Eosinophils # (0-0.7) k/uL Basophils # (0-0.2) k/uL Manual Slide Review Hypochromasia Anisocytosis Macrocytosis PT (9.0-12.0) sec INR (<1.2) APTT (22.0-30.0) sec Sodium (137-145) mmol/L Potassium (3.5-5.1) mmol/L Chloride (98-107) mmol/L Carbon Dioxide (22-30) mmol/L Anion Gap mmol/L BUN (7-17) mg/dL Creatinine (0.52-1.04) mg/dL Est GFR (CKD-EPI)AfAm (>60 ml/min/1.73 sqM) Est GFR (CKD-EPI)NonAf (>60 ml/min/1.73 sqM) Glucose (74-99) mg/dL Lactic Ac Sepsis Rflx Plasma Lactic Acid Ilia 1.9 (0.7-2.0) mmol/L Calcium (8.4-10.2) mg/dL Magnesium (1.6-2.3) mg/dL Total Bilirubin (0.2-1.3) mg/dL AST (14-36) U/L ALT (4-34) U/L Alkaline Phosphatase (38-126) U/L Total Protein (6.3-8.2) g/dL Albumin (3.5-5.0) g/dL Urine Color Yellow Urine Appearance Clear (Clear) Urine pH 6.0 (5.0-8.0) Ur Specific [place] 1.015 (1.001-1.035) Urine Protein Trace H (Negative) Urine Glucose (UA) Negative (Negative) Urine Ketones Negative (Negative) Urine Blood Trace H (Negative) Urine Nitrite Negative (Negative) Urine Bilirubin 1+ H (Negative) Urine Urobilinogen 2.0 (<2.0) mg/dL Ur Leukocyte Esterase Negative (Negative) Urine RBC 2 (0-5) /hpf Urine WBC 3 (0-5) /hpf Ur Squamous Epith Cells <1 (0-4) /hpf Hyaline Casts 1 (0-2) /lpf Urine Mucus Rare H (None) /hpf Influenza Type A (PCR) (Not Detectd) Influenza Type B (PCR) (Not Detectd) RSV (PCR) (Not Detectd) SARS-CoV-2 (PCR) (Not Detectd) Disposition <Jass Gunter - Last Filed: 09/28/22 06:09> Decision Time: 08:10 <Juan Pablo Ramirez - Last Filed: 09/28/22 11:10> Clinical Impression: SIRS (systemic inflammatory response syndrome) Disposition: ADMITTED IP TO THIS HOSP Condition: Fair Referrals: Adriel Franco MD [Primary Care Provider] - 1-2 days
[2022-09-28 06:20] LABS: INR 1.1 (<1.2); Partial Thromboplastin Time 24.6 sec (22.0-30.0); Prothrombin Time 11.2 sec (9.0-12.0)
[2022-09-28 06:25] LABS: ALT 95 U/L (4-34); AST 274 U/L (14-36); African American GFR (CKD) >90 (>60 ml/min/1.73 sqM); Albumin 3.8 g/dL (3.5-5.0); Alkaline Phosphatase 367 U/L (38-126); Anion Gap 12 mmol/L; Blood Urea Nitrogen 18 mg/dL (7-17); Calcium 8.4 mg/dL (8.4-10.2); Carbon Dioxide 20 mmol/L (22-30); Chloride 108 mmol/L (98-107); Glucose 194 mg/dL (74-99); Magnesium 1.4 mg/dL (1.6-2.3); Non-African American GFR(CKD) 81 (>60 ml/min/1.73 sqM); Potassium 3.9 mmol/L (3.5-5.1); Sodium 140 mmol/L (137-145); Total Protein 6.3 g/dL (6.3-8.2)
[2022-09-28] MEDS ORDERED: MORPHINE SULFATE 2 MG/ML SYRINGE IV STA (07:40)
--- NOTE | 2022-09-28 07:40 | XR ---
EXAMINATION TYPE: XR chest 2V DATE OF EXAM: 09/28/2022 COMPARISON: Chest x-ray June 06, 2022 HISTORY: Fever TECHNIQUE: Frontal and lateral views of the chest are obtained. FINDINGS: There is some chronic medical changes without suspicious focal air space opacity or pneumo thorax seen. Trace pleural effusion on lateral view extending into fissure The cardiac silhouette siz e is stable and within normal limits. The osseous structures remain demineralized. IMPRESSION: No acute pulmonary infiltrate.
[2022-09-28 08:32] LABS: Appearance,Urine Clear (Clear); Bilirubin,Urine 1+ (Negative); Blood,Urine Trace (Negative); Color,Urine Yellow; Glucose,Urine (UA) Negative (Negative); Hyaline Casts,Urine 1 /lpf (0-2); Ketones,Urine Negative (Negative); Leukocyte Esterase,Urine Negative (Negative); Mucus,Urine Rare /hpf; Nitrite,Urine Negative (Negative); Protein,Urine Trace (Negative); RBC,Urine 2 /hpf (0-5); Specific Gravity,Urine 1.015 (1.001-1.035); Squamous Epithelial Cell,Urine <1 /hpf (0-4); WBC,Urine 3 /hpf (0-5)
--- NOTE | 2022-09-28 08:40 | US ---
EXAMINATION TYPE: US gallbladder DATE OF EXAM: 09/28/2022 COMPARISON: Prior MRI August 05, 2022 CLINICAL INDICATION: Female, 87 years old with history of fever/vomiting; vomiting TECHNIQUE: Multiple sonographic images of the right upper quadrant are obtained. 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 Evidence for sonographic Goodson's sign: no CBD: Dilated Right Kidney: No hydronephrosis or masses seen . Cortical thinning is present. IMPRESSION: No shadowing mobile gallstones or ultrasound evidence for acute cholecystitis. Mild to mo derate extrahepatic biliary dilatation remains present
[2022-09-28] MEDS ORDERED: NALOXONE 0.4 MG/ML 1 ML VIAL IV PRN (11:08)
[2022-09-28] MEDS ORDERED: SODIUM CHLORIDE 0.9% 1,000 ML IV SCH (11:15)
[2022-09-28] MEDS ORDERED: DEXTROSE 50% SYRINGE 50 ML IVP PRN ×2 (14:30)
[2022-09-28] MEDS: MAGNESIUM SULFATE-D5W PMX 1 GM in DEXTROSE/WATER 1 100ML.BAG IVPB SCH ×2 (15:17→16:24)
[2022-09-28] MEDS ORDERED: ONDANSETRON 4 MG/2 ML VIAL IVP PRN (17:00)
[2022-09-28 17:18] LABS: Glucose,Whole Blood 148 mg/dL (70-110)
[2022-09-28] MEDS: INSULIN ASPART (NovoLOG) 100 UNIT/ML VIAL SQ SCH ×2 (17:22→20:05)
[2022-09-28] MEDS: FAMOTIDINE 20 MG/2 ML VIAL IV SCH (20:03)
[2022-09-28 20:06] LABS: Glucose,Whole Blood 128 mg/dL (70-110)
[2022-09-28] MEDS: ACETAMINOPHEN TAB 325 MG TAB PO PRN (20:16)
--- NOTE | 2022-09-28 23:17 | P.HPIM ---
History of Present Illness H&P Date: 09/28/22 Chief Complaint: Nausea vomiting and faver Patient is a 87-year-old female with a known history of hypertension, hyperlipidemia, diabetes type 2 [id number], hypothyroidism, history of myelofibrosis presents today with complaints of nausea episodes of vomiting and chills. Symptoms started this morning. She vomited about 3 times. Nonbilious. Denies any hematemesis. No cough or sputum production. Patient states that she had MRI done at [facility] to rule out any stones in the bile ducts.. Patient thinks contrast dye might be causing her symptoms. Patient states that she had endoscopy done about a week ago. Without any intervention.. Denies any abdominal pain. No diarrhea. No chest pain or shortness of breath. On admission Tmax 101.2. Patient is also complaining of chest tightness. Chest x-ray showed no acute pulmonary infiltrate. Gallbladder ultrasound showed no shadowing mobile gallstones or ultrasound evidence for acute cholecystitis. Mild to moderate extrahepatic biliary dilatation remains present. EKG showed sinus rhythm with first-degree AV block. Laboratory data showed WBC 5.2 hemoglobin 16.8 and platelets 163 Sodium 140 potassium three-point 108 bicarb is 20 BUN 18 and creatinine 0.60 and blood sugar is 194 lactic acid 2.2 magnesium 1.4 AST 274 ALT 95 and alk phos 367 Urinalysis is negative for infection, influenza AB RSV and COVID-19 PCR not detected. Review of Systems Constitutional: Patient does have fever and chills.. no Generalized weakness. Abdomen: Patient is complaining of nausea and vomiting. No abdominal pain or diarrhea.. pain Cardiovascular: Patient denies any chest pain or short of breath no palpitations. Complains of chest tightness. No leg swelling. Respiratory: patient denied any cough . no sputum production. No shortness of breath Neurologic: Patient denied any numbness or tingling headache. Musculoskeletal: Patient denies any complaints of joint swelling or deformity. Skin: Negative Psychiatric: Negative Endocrine: No heat or cold intolerance. No recent weight gain. Genitourinary: No dysuria or hematuria. All other 14 point ROS negative except the above Past Medical History Past Medical History: Blood Disorder, Cancer, Diabetes Mellitus, Hyperlipidemia, Hypertension, Osteoarthritis (OA), Thyroid Disorder Additional Past Medical History / Comment(s): primary myleofibrosis, skin cancer History of Any Multi-Drug Resistant Organisms: None Reported Date of last positivie culture/infection: 07/14/20 MDRO Source:: urine Past Surgical History: Appendectomy, Back Surgery, Bladder Surgery, Hysterectomy, Orthopedic Surgery, Tonsillectomy Additional Past Surgical History / Comment(s): amanda cataracts, rt wrist surgery- (bone taken from rt elbow and put in rt hand), 3 arthroscopy surgeries rt shoulder, bursa removed from rt leg, left knee arthroscopy, cysts remoed from back, rt foot bunionectomy. left nephrolithotomy with nephrostomy Past Anesthesia/Blood Transfusion Reactions: Previous Problems w/ Anesthesia, Motion Sickness, Postoperative Nausea & Vomiting (PONV) Additional Past Anesthesia/Blood Transfusion Reaction / Comment(s): had trouble focusing after one surgery Past Psychological History: No Psychological Hx Reported Smoking Status: Never smoker Past Alcohol Use History: None Reported Past Drug Use History: None Reported - Past Family History Mother Family Medical History: No Reported History Medications and Allergies Home Medications Medication Instructions Recorded Confirmed Type Fenofibrate Nanocrystallized 145 mg PO DAILY 09/26/16 09/28/22 History [Tricor] Hydroxyurea 500 mg PO MOTU 09/26/16 09/28/22 History amLODIPine BESYLATE [Norvasc] 5 mg PO BID 09/26/16 09/28/22 History Hydroxyurea [Hydrea] 1,000 mg PO SUWETHFRSA 12/25/18 09/28/22 History sitaGLIPtin [Januvia] 100 mg PO DAILY 12/25/18 09/28/22 History lisinopriL [Prinivil] 20 mg PO BID 07/27/20 09/28/22 History Albuterol Sulfate [Albuterol 2 puff INHALATION RT-Q4H PRN 09/28/22 09/28/22 History Sulfate Hfa] Ketoconazole 2% Shampoo [Nizoral] 1 applic TOPICAL Q2D 09/28/22 09/28/22 History Allergies Allergy/AdvReac Type Severity Reaction Status Date / Time meperidine [From Demerol] AdvReac Nausea & Verified 04/27/21 15:10 Vomiting Physical Exam Vitals: Vital Signs Temp Pulse Pulse Resp BP BP Pulse Ox 09/28/22 20:09 24 09/28/22 20:00 100.5 F H 85 18 119/70 92 L 09/28/22 17:40 100.6 F H 85 23 112/62 94 L 09/28/22 14:23 99.1 F 81 19 112/63 94 L 09/28/22 12:42 98.3 F 52 L 19 120/66 95 09/28/22 12:19 98.2 F 84 18 109/55 94 L 09/28/22 12:00 105/54 96 09/28/22 11:00 107/62 94 L 09/28/22 10:07 90 L 09/28/22 10:04 99.7 F H 80 20 107/62 89 L 09/28/22 09:12 84 20 106/56 90 L 09/28/22 08:20 91 22 111/55 92 L 09/28/22 07:21 100.2 F H 99 22 130/63 92 L 09/28/22 05:43 101.2 F H 110 H 20 128/69 92 L Intake and Output 09/28/22 09/28/22 09/28/22 06:59 14:59 22:59 Output Total 0 Balance 0 Output: Emesis 0 Other: Voiding Method Toilet # Voids 2 0 Weight 49.895 kg 49.895 kg PHYSICAL EXAMINATION: Patient is lying in the bed comfortably, no acute distress, awake alert and oriented.. HEENT: Normocephalic. Neck is supple. Pupils reactive. Nostrils clear. Oral cavity is moist. Neck reveals no JVD, carotid bruits, or thyromegaly. CHEST EXAMINATION: Trachea is central. Symmetrical expansion. Lung beach clear to auscultation and percussion. CARDIAC: Normal S1, S2 with no gallops. No murmurs ABDOMEN: Soft. Bowel sounds present. Nontender. No organomegaly. No abdominal bruits. Extremities: reveal no edema. No clubbing or cyanosis Neurologically awake, alert, oriented x3 with well-coordinated movements. No focal deficits noted Skin: No rash or skin lesions. Psychiatric: Coperative. Nonsuicidal, Musculoskeletal: No joint swelling or deformity. Normal range of motion. Results CBC & Chem 7: 09/29/22 05:20 09/29/22 05:20 Labs: Abnormal Lab Results - Last 24 Hours (Table) 09/28/22 09/28/22 09/28/22 Range/Units 05:50 05:50 05:50 Hgb 16.8 H (11.4-16.0) gm/dL Hct 53.2 H (34.0-46.0) % MCV 106.3 H (80.0-100.0) fL RDW 16.8 H (11.5-15.5) % Lymphocytes # 0.3 L (1.0-4.8) k/uL Macrocytosis Marked A Chloride 108 H (98-107) mmol/L Carbon Dioxide 20 L (22-30) mmol/L BUN 18 H (7-17) mg/dL Glucose 194 H (74-99) mg/dL POC Glucose (mg/dL) (70-110) mg/dL Plasma Lactic Acid Ilia 2.2 H* (0.7-2.0) mmol/L Magnesium 1.4 L (1.6-2.3) mg/dL Total Bilirubin 4.0 H (0.2-1.3) mg/dL AST 274 H (14-36) U/L ALT 95 H (4-34) U/L Alkaline Phosphatase 367 H (38-126) U/L Urine Protein (Negative) Urine Blood (Negative) Urine Bilirubin (Negative) Urine Mucus (None) /hpf 09/28/22 09/28/22 09/28/22 Range/Units 08:20 17:17 20:05 Hgb (11.4-16.0) gm/dL Hct (34.0-46.0) % MCV (80.0-100.0) fL RDW (11.5-15.5) % Lymphocytes # (1.0-4.8) k/uL Macrocytosis Chloride (98-107) mmol/L Carbon Dioxide (22-30) mmol/L BUN (7-17) mg/dL Glucose (74-99) mg/dL POC Glucose (mg/dL) 148 H 128 H (70-110) mg/dL Plasma Lactic Acid Ilia (0.7-2.0) mmol/L Magnesium (1.6-2.3) mg/dL Total Bilirubin (0.2-1.3) mg/dL AST (14-36) U/L ALT (4-34) U/L Alkaline Phosphatase (38-126) U/L Urine Protein Trace H (Negative) Urine Blood Trace H (Negative) Urine Bilirubin 1+ H (Negative) Urine Mucus Rare H (None) /hpf Thrombosis Risk Factor Assmnt - DVT/VTE Prophylaxis DVT/VTE Prophylaxis: Pharmacologic Prophylaxis ordered Assessment and Plan Assessment: Possible acute cholangitis. Fever, hyperbilirubinemia and recent history of ERCP procedure at [facility]. Hypomagnesemia. Replaced. Hypertension Hyperlipidemia Diabetes type 2 non-insulin Hypothyroidism Osteoarthritis History of primary myelofibrosis History of bladder surgery DVT prophylaxis with heparin subcu Plan: Patient will be continued on IV hydration with normal saline. Continue with symptomatic for nausea and vomiting. Patient will be started on ceftriaxone and Flagyl and follow-up blood cultures. Continue with Tylenol for fever. Continue with insulin sliding scale. ID will be consulted for further evaluation. Continue to follow closely. Prognosis is guarded. Time with Patient: Greater than 30
[2022-09-29] MEDS: metroNIDAZOLE-NS PMX 500 MG in SALINE 1 100ML.BAG IVPB SCH ×3 (00:40→15:49)
[2022-09-29 06:45] LABS: Glucose,Whole Blood 81 mg/dL (70-110)
[2022-09-29] MEDS: INSULIN ASPART (NovoLOG) 100 UNIT/ML VIAL SQ SCH ×3 (06:45→17:21)
[2022-09-29] MEDS ORDERED: HEPARIN SODIUM,PORCINE/PF 5,000 UNIT/0.5 ML SYRINGE SQ SCH (09:00)
[2022-09-29] MEDS: FAMOTIDINE 20 MG/2 ML VIAL IV SCH (09:08)
[2022-09-29 09:24] LABS: Albumin/Globulin Ratio 1.86 (1.60-3.17); Anion Gap 9.4 mmol/L (10.00-18.00); BUN/Creat Ratio 22.25 Ratio (12.00-20.00); Calcium 7.9 mg/dL (8.7-10.3); Carbon Dioxide 21.3 mmol/L (20.0-27.5); Globulin 1.6 g/dL (1.6-3.3); Non-African American GFR(CKD) 60.4 (60.0-200.0); Total Bilirubin 7.5 mg/dL (0.30-1.20); Total Protein 4.6 g/dL (6.2-8.2)
[2022-09-29] MEDS: ACETAMINOPHEN TAB 325 MG TAB PO PRN ×3 (10:38→22:23)
[2022-09-29 11:24] LABS: HCT 44.1 % (37.2-46.3); HGB 14.3 g/dL (12.0-15.0); MCH 34.5 pg (27.0-32.0); MCHC 32.4 g/dL (32.0-37.0); MCV 106.5 fL (80.0-97.0); Mean Platelet Volume 10.9 fL (9.5-12.2); NRBC Per 100 WBC 0.1 /100 WBCS (0.0-0.0); Platelet Count 160 X 10*3/uL (140-440); RBC 4.14 X 10*6/uL (4.10-5.20); RDW 16.2 % (11.5-14.5); WBC 14.34 X 10*3/uL (4.50-10.00)
[2022-09-29 11:49] VITALS: BMI 18.8
[2022-09-29 11:58] LABS: Glucose,Whole Blood 94 mg/dL (70-110)
[2022-09-29 12:16] LABS: Basophils # (A) 0.08 X 10*3/uL (0.00-0.10); Basophils % (A) 0.6 %; Eosinophils # (A) 0.03 X 10*3/uL (0.04-0.35); Eosinophils % (A) 0.2 %; Immature Grans, Automated 0.8 %; Lymphocytes # (A) 0.72 X 10*3/uL (0.90-5.00); Monocytes # (A) 1.26 X 10*3/uL (0.20-1.00); Monocytes % (A) 8.8 %; Neutrophils # (A) 12.14 X 10*3/uL (1.80-7.70); Neutrophils % (A) 84.6 %
[2022-09-29 12:17] LABS: Acanthocytes 2+; Macrocytosis (M) 2+
[2022-09-29 14:59] VITALS: TEMP 98.2
[2022-09-29] MEDS: SODIUM CHLORIDE 0.9% 1,000 ML IV SCH ×2 (15:50)
[2022-09-29 17:21] LABS: Glucose,Whole Blood 88 mg/dL (70-110)
[2022-09-29 20:27] LABS: Glucose,Whole Blood 93 mg/dL (70-110)
--- NOTE | 2022-09-29 20:58 | P.CONS ---
History of Present Illness - Reason for Consult Consult date: 09/29/22 - History of Present Illness Patient is a 87-year-old female with a past medical history significant for hypertension hyperlipidemia type 2 diabetes mellitus myelofibrosis apparently the patient was admitted to [facility] in June 2022 patient mention she did have a bladder infection which apparently was thought to be related to the gallbladder and there was question of whether to do cholecystectomy or not however it was not done patient also have a recent work-up done at [facility] with the patient did have an MRI to rule out stones in the bile duct and apparently also have ERCP without any intervention patient now presenting to [facility] 09/28/2022 for evaluation of nausea vomiting and chills patient symptoms started the day of presentation to the hospital and apparently did have a 3 episodes of vomiting patient did have some vague abdominal pain denies having any diarrhea or urinary symptoms no chest pain or shortness of breath or cough patient on presentation to the hospital did have a fever of 101.2 F, patient was not tachycardic or hypotensive mildly hypoxic currently on 2 L nasal cannula patient did have vital of 14.3 with a left shift kidney function was normal did have elevated liver enzymes patient did have a chest x-ray no acute pulmonary infiltrate gallbladder ultrasound no shadowing mobile gallstone on ultrasound evidence for clinical status mild to moderate extrahepatic biliary duct dilatation present patient was started on Rocephin and Flagyl infectious disease was consulted for further management of antibiotic therapy Past Medical History Past Medical History: Blood Disorder, Cancer, Diabetes Mellitus, Hyperlipidemia, Hypertension, Osteoarthritis (OA), Thyroid Disorder Additional Past Medical History / Comment(s): primary myleofibrosis, skin cancer History of Any Multi-Drug Resistant Organisms: None Reported Year Discovered:: 07/14/20 MDRO Source:: urine Past Surgical History: Appendectomy, Back Surgery, Bladder Surgery, Hysterectomy, Orthopedic Surgery, Tonsillectomy Additional Past Surgical History / Comment(s): amanda cataracts, rt wrist surgery- (bone taken from rt elbow and put in rt hand), 3 arthroscopy surgeries rt should er, bursa removed from rt leg, left knee arthroscopy, cysts remoed from back, rt foot bunionectomy. left nephrolithotomy with nephrostomy Past Anesthesia/Blood Transfusion Reactions: Previous Problems w/ Anesthesia, Motion Sickness, Postoperative Nausea & Vomiting (PONV) Additional Past Anesthesia/Blood Transfusion Reaction / Comm: had trouble foc using after one surgery Past Psychological History: No Psychological Hx Reported Smoking Status: Never smoker Past Alcohol Use History: None Reported Past Drug Use History: None Reported - Past Family History Mother Family Medical History: No Reported History Medications and Allergies Home Medications Medication Instructions Recorded Confirmed Type Fenofibrate Nanocrystallized 145 mg PO DAILY 09/26/16 09/28/22 History [Tricor] Hydroxyurea 500 mg PO MOTU 09/26/16 09/28/22 History amLODIPine BESYLATE [Norvasc] 5 mg PO BID 09/26/16 09/28/22 History Hydroxyurea [Hydrea] 1,000 mg PO SUWETHFRSA 12/25/18 09/28/22 History sitaGLIPtin [Januvia] 100 mg PO DAILY 12/25/18 09/28/22 History lisinopriL [Prinivil] 20 mg PO BID 07/27/20 09/28/22 History Albuterol Sulfate [Albuterol 2 puff INHALATION RT-Q4H PRN 09/28/22 09/28/22 History Sulfate Hfa] Ketoconazole 2% Shampoo [Nizoral] 1 applic TOPICAL Q2D 09/28/22 09/28/22 History Allergies Allergy/AdvReac Type Severity Reaction Status Date / Time meperidine [From Demerol] AdvReac Nausea & Verified 04/27/21 15:10 Vomiting Physical Exam Vitals: Vital Signs Temp Pulse Pulse Resp BP BP Pulse Ox 09/29/22 07:14 98.1 F 70 19 111/61 92 L 09/29/22 02:00 98.1 F 70 14 104/61 95 09/28/22 20:09 24 09/28/22 20:00 100.5 F H 85 18 119/70 92 L 09/28/22 17:40 100.6 F H 85 23 112/62 94 L 09/28/22 14:23 99.1 F 81 19 112/63 94 L 09/28/22 12:42 98.3 F 52 L 19 120/66 95 09/28/22 12:19 98.2 F 84 18 109/55 94 L 09/28/22 12:00 105/54 96 09/28/22 11:00 107/62 94 L Intake and Output 0509/29/22 09/29/22 22:59 06:59 14:59 Output Total 0 Balance 0 Output: Emesis 0 Other: Voiding Method Toilet # Voids 0 1 Results CBC & Chem 7: 09/29/22 05:20 09/29/22 05:20 Labs: Abnormal Lab Results - Last 24 Hours (Table) 09/28/22 09/28/22 09/29/22 Range/Units 17:17 20:05 05:20 Anion Gap 9.40 L (10.00-18.00) mmol/L BUN/Creatinine Ratio 22.25 H (12.00-20.00) Ratio POC Glucose (mg/dL) 148 H 128 H (70-110) mg/dL Calcium 7.9 L (8.7-10.3) mg/dL Total Bilirubin 7.50 H (0.30-1.20) mg/dL AST 135 H (13-35) U/L ALT 100 H (8-44) U/L Alkaline Phosphatase 226 H (41-126) U/L Total Protein 4.6 L (6.2-8.2) g/dL Albumin 3.0 L (3.8-4.9) g/dL Procalcitonin (0.02-0.09) ng/mL 09/29/22 Range/Units 05:20 Anion Gap (10.00-18.00) mmol/L BUN/Creatinine Ratio (12.00-20.00) Ratio POC Glucose (mg/dL) (70-110) mg/dL Calcium (8.7-10.3) mg/dL Total Bilirubin (0.30-1.20) mg/dL AST (13-35) U/L ALT (8-44) U/L Alkaline Phosphatase (41-126) U/L Total Protein (6.2-8.2) g/dL Albumin (3.8-4.9) g/dL Procalcitonin 6.03 H (0.02-0.09) ng/mL Assessment and Plan Plan: 1patient presented hospital with sepsis in this patient with fever elevated white count and elevated liver enzymes likely related to cholangitis apparently the patient did have a episode of bacteremia related to her cholangitis back in June and recent work-up at outside facility the patient did have MRCP as well as ERCP but no intervention, we will need to cover for the enteric gram- negative to be the likely pathogen 2-patient benefit from GI evaluation for repeat ERCP as clinic suspicion is high for CBD obstruction 3-patient to continue Rocephin and Flagyl while waiting for the culture to finalize We will follow on clinical condition and cultures to further adjust medication if needed Thank you for this consultation we will follow the patient along with you Time with Patient: Greater than 30
[2022-09-29 22:22] VITALS: BP 146/70; PULSE 85; RESP 18
[2022-09-30] MEDS ORDERED: FAMOTIDINE 20 MG/2 ML VIAL IV SCH (09:00)
== END 2022-09-29 23:57 | disposition other institution (70) ==
LOC: EC 05:39 → 6NMEDSUR 11:08
PROVIDERS: ADMIT Internal Medicine; ATTEND Internal Medicine
DX: R11.2 Nausea with vomiting, unspecified (principal); R50.9 Fever, unspecified; E83.42 Hypomagnesemia; E11.9 Type 2 diabetes mellitus without complications; E78.5 Hyperlipidemia, unspecified; D47.1 Chronic myeloproliferative disease; Z20.822 Contact with and (suspected) exposure to COVID-19; I10 Essential (primary) hypertension; M19.90 Unspecified osteoarthritis, unspecified site; E03.9 Hypothyroidism, unspecified; Z85.828 Personal history of other malignant neoplasm of skin; Z86.19 Personal history of other infectious and parasitic diseases; Z90.49 Acquired absence of other specified parts of digestive tract; Z90.710 Acquired absence of both cervix and uterus; Z98.890 Other specified postprocedural states; Z98.42 Cataract extraction status, left eye; Z98.41 Cataract extraction status, right eye; Z93.6 Other artificial openings of urinary tract status; Z79.84 Long term (current) use of oral hypoglycemic drugs; Z79.82 Long term (current) use of aspirin; Z79.899 Other long term (current) drug therapy; Z88.5 Allergy status to narcotic agent
CPT/HCPCS: 96376 ×2; 96361 ×2; 96366 ×2; 96375 ×2; 96365; 99285; 36415; 80053 ×2; 83605; 83735; 84484; 85025 ×2; 85610; 85730; 81001; 87040; 83036; 84145; 87636; 71046; 76705; G0378 ×2; J2405; J0696; J2270; J3475; J0131